=== PATIENT | male | born 1950 | race Caucasian/White ===

== ENCOUNTER 2017-11-06 15:08 | Inpatient (IN) | payer MEDICAID, MEDICARE ==
--- NOTE | 2017-11-06 15:46 | ED PDOC ---
Arrival/HPI - General Chief Complaint: Shortness Of Breath Time Seen by Provider: 11/06/17 15:38 Historian: Patient - History of Present Illness Narrative History of Present Illness (Text): 11/06/17 15:39 67 year old male, whose past medical history includes COPD, asthma, hypertension , and arthritis, who presents to the Emergency department complaining of chest pain and shortness of breath today. Patient notes associated cough and left lower abdominal pain. Patient notes chest pain as a sharp pain. Patient denies any fever, chills, nausea, vomiting, diarrhea, urinary symptoms, back pain, neck pain, headache, dizziness, or any other complaints. Time/Duration: Other (today) Symptom Onset: Sudden Symptom Course: Unchanged Activities at Onset: Light Context: Home Past Medical History - Provider Review Nursing Documentation Reviewed: Yes - Infectious Disease Hx of Infectious Diseases: None - Cardiac Hx Cardiac Disorders: Yes Hx Hypertension: Yes Other/Comment: CAD w/ stent x1 2016 - Pulmonary Hx Respiratory Disorders: Yes Hx Asthma: Yes Hx Chronic Obstructive Pulmonary Disease (COPD): Yes - Neurological Hx Neurological Disorder: No - HEENT Hx HEENT Disorder: Yes Hx Cataracts: Yes - Renal Hx Renal Disorder: Yes Hx Kidney Stones: Yes - Endocrine/Metabolic Hx Endocrine Disorders: Yes Hx Diabetes Mellitus Type 2: Yes - Hematological/Oncological Hx Blood Disorders: No Hx Blood Transfusions: No Hx Blood Transfusion Reaction: No - Integumentary Hx Dermatological Disorder: No - Musculoskeletal/Rheumatological Hx Musculoskeletal Disorders: Yes Hx Arthritis: Yes Hx Falls: No Hx Fractures: Yes (Right foot, nose x3, right leg "many years ago") Other/Comment: HX:chronic ankle problems-ARTHRITIS - Gastrointestinal Hx Gastrointestinal Disorders: No - Genitourinary/Gynecological Hx Genitourinary Disorders: Yes (frequency/retention) Hx Hematuria: Yes Hx Prostate Problems: Yes (S/P TURP; 3WF c [facility]) Other/Comment: had 2 surgical procedures 2 yrs ago for hematuria and passing clots pt does no know what kind of procedures they were - Psychiatric Hx Psychophysiologic Disorder: No Hx Substance Use: No - Surgical History Hx Coronary Stent: Yes (x 1) Other/Comment: TURP x1. HX: 07/09/16-CYSTO WITH BILATERAL RETROGRADE PYELOGRAM , RIGHT URETERAL STENT, CYSTOGRAM. HX: 08/22/16-CYSTO RIGHT URETERAL STENT REMOVAL - Anesthesia Hx Anesthesia: Yes Hx Anesthesia Reactions: Yes (BURNING UP ARM TO HEAD BEFORE SEDATED) Hx Malignant Hyperthermia: No Family/Social History - Physician Review Nursing Documentation Reviewed: Yes Family/Social History: Unknown Family HX Smoking Status: Current Some Days Smoker Hx Alcohol Use: Yes Hx Substance Use: No Allergies/Home Meds Allergies/Adverse Reactions: Allergies garlic Allergy (Severe, Verified 11/06/17 15:32) SWELLING OF FACE AND ITCHINESS onion Allergy (Severe, Verified 11/06/17 15:32) SWELLING OF FACE AND ITCHINESS pepper (genus Capsicum) [pepper] Allergy (Severe, Verified 11/06/17 15:32) SWELLING OF FACE AND ITCHINESS Home Medications: Home Meds Medication Instructions Recorded Confirmed Loratadine [Claritin] 10 mg PO DAILY 05/08/16 11/20/16 MetFORMIN [glucoPHAGE] 1,000 mg PO BID 05/08/16 11/20/16 Metoprolol Succinate 50 mg PO DAILY 05/08/16 11/20/16 Montelukast [Singulair] 10 mg PO DAILY 05/08/16 11/20/16 Simvastatin [Zocor] 40 mg PO DAILY 05/08/16 11/20/16 Tamsulosin [Flomax] 0.4 mg PO DAILY 05/08/16 11/20/16 Zolpidem [Ambien] 10 mg PO HS 05/08/16 11/20/16 Albuterol 0.083% [Albuterol 0.083% 3 ml NEB DAILY 11/20/16 11/20/16 Inhal Carissa (2.5 mg/3 ml) UD] Finasteride [Proscar] 5 mg PO DAILY 11/20/16 11/20/16 Hyoscyamine Sulfate [Levbid] 0.375 mg PO DAILY 11/20/16 11/20/16 Losartan [Cozaar] 12.5 mg PO DAILY 11/20/16 11/20/16 Oxybutynin [Oxybutynin Chloride] 5 mg PO DAILY 11/20/16 11/20/16 oxyCODONE/Acetaminophen [Percocet 1 tab PO Q6 PRN 11/20/16 11/20/16 5/325 mg Tab] Review of Systems - Physician Review All systems were reviewed & negative as marked: Yes - Review of Systems Constitutional: Normal Eyes: Normal ENT: Normal Respiratory: SOB, Cough Cardiovascular: Chest Pain Gastrointestinal: Normal. absent: Abdominal Pain, Diarrhea, Nausea, Vomiting Genitourinary Male: Normal. absent: Dysuria, Frequency, Hematuria Musculoskeletal: Normal. absent: Back Pain, Neck Pain Skin: Normal. absent: Rash Neurological: Normal. absent: Headache, Dizziness Endocrine: Normal Hemo/Lymphatic: Normal Psychiatric: Normal Physical Exam - Physical Exam Narrative Physical Exam (Text): 11/06/17 15:55 Gen: VS reviewed, alert, well developed, well nourished, nontoxic, mild distress (every patient is mild distress unless otherwise stated) ENT: normal pharynx Eye: EOMI, PERRL Neck: no JVD, supple, no adenopathy CV: regular rate, regular rhythm, no rubs,no murmur, no gallops, S1, S2, pulses equal and strong Pulm: no distress, clear to auscultation, no wheeze, no rhonchi, breath sounds equal, no rales Abd: soft, nontender, no guarding, no rebound, no rigidity, normal bowel sounds Ext: no edema Skin: good color, no rash, no cyanosis Psych: responds appropriately to questions, normal affect Neuro: oriented x3, CN2-12 intact grossly, motor intact, sensation intact Vital Signs Temp Pulse Resp BP Pulse Ox 11/06/17 15:37 99.1 F 100 H 20 120/86 96 11/06/17 15:36 20 94 L Respiratory Rate: Normal Medical Decision Making ED Course and Treatment: 11/06/17 15:55 Impression: 67 year old male presents to the Emergency department complaining of SOB and chest pain today. Plan: -- EKG -- Troponin -- Labs -- Chest X-ray -- Blood Culture -- UA -- Reassess and disposition Progress Notes: 11/06/17 16:55 CXR reviewed, shows: LUNGS: The lungs are well inflated. There is linear atelectasis/ scarring in the left lung base. PLEURA: No significant pleural effusion identified, no pneumothorax apparent. CARDIOVASCULAR: Normal. OSSEOUS STRUCTURES: No significant abnormalities. VISUALIZED UPPER ABDOMEN: Normal. OTHER FINDINGS: None. IMPRESSION: No active pulmonary disease. 11/06/17 17:[address] shea, patient to be admitted for copd exacerbation, empiric antibiotics for copd exacerbation - Lab Interpretations Lab Results: 11/06/17 15:08 11/06/17 15:08 Lab Results 11/06/17 15:08: PT 12.5, INR 1.09 H, APTT 28.3 11/06/17 15:08: Sodium 144, Potassium 3.4 L, Chloride 112 H, Carbon Dioxide 21, Anion Gap 15, BUN 18, Creatinine 1.1, Est GFR ( Amer) > 60, Est GFR (Non- Af Amer) > 60, Random Glucose 203 H, Calcium 9.2, Total Bilirubin 0.1 L, AST 17 , ALT 23, Alkaline Phosphatase 59, Troponin I < 0.01, NT-Pro-B Natriuret Pep 50.7, Total Protein 6.4, Albumin 3.6, Globulin 2.8, Albumin/Globulin Ratio 1.3 11/06/17 15:08: WBC 8.7 D, RBC 3.48 L, Hgb 11.3 L, Hct 33.5 L, MCV 96.3, MCH 32.5, MCHC 33.7, RDW 14.4, Plt Count 230, MPV 9.2, Gran % 59.4, Lymph % (Auto) 35.4 H, [place] % (Auto) 4.0, Eos % (Auto) 1.1 L, Baso % (Auto) 0.1, Gran # 5.18, Lymph # (Auto) 3.1, [place] # (Auto) 0.4, Eos # (Auto) 0.1, Baso # (Auto) 0.01 - RAD Interpretation Radiology Orders: 11/06/17 15:43 CHEST PORTABLE [RAD] Stat - EKG Interpretation EKG Interpretation (Text): 11/06/17 16:23 1534: sinus rhythm at 100 bpm, nml qrs, nml axis, no acute sttw abn - Medication Orders Current Medication Orders: Ceftriaxone Sodium (Rocephin 1 Gram Ivpb) 1 gm in 100 mls @ 100 mls/hr IVPB STAT STA PRN Reason: Protocol Stop: 11/06/17 18:19 Azithromycin (Zithromax 500mg In Ns) 500 mg in 250 mls @ 167 mls/hr IVPB STAT STA PRN Reason: Protocol Stop: 11/06/17 18:50 Discontinued Medications Albuterol Sulfate (Albuterol 0.083% Inhal Carissa (2.5 Mg/3 Ml) Ud) 2.5 mg INH STAT STA Stop: 11/06/17 17:26 Albuterol/Ipratropium (Duoneb 3 Mg/0.5 Mg (3 Ml) Ud) 3 ml IH STAT STA Stop: 11/06/17 16:10 Last Admin: 11/06/17 16:29 Dose: 3 ml Methylprednisolone (Solu-Medrol) 60 mg IVP STAT STA Stop: 11/06/17 16:09 Last Admin: 11/06/17 16:30 Dose: 60 mg IVP Administration Document 11/06/17 16:30 [email or web address] (Rec: 11/06/17 16:30 [email or web address] [id number]) Charges for Administration # of IVP Administrations 1 - Scribe Statement The provider has reviewed the documentation as recorded by the Scribe Jodi Tran All medical record entries made by the Scribe were at my direction and personally dictated by me. I have reviewed the chart and agree that the record accurately reflects my personal performance of the history, physical exam, medical decision making, and the department course for this patient. I have also personally directed, reviewed, and agree with the discharge instructions and disposition. Disposition/Present on Arrival - Present on Arrival Any Indicators Present on Arrival: No History of DVT/PE: No History of Uncontrolled Diabetes: No Urinary Catheter: Yes History of Decub. Ulcer: No History Surgical Site Infection Following: None - Disposition Have Diagnosis and Disposition been Completed?: Yes Diagnosis: COPD exacerbation Disposition: HOSPITALIZED Disposition Time: 18:15 Condition: GOOD
[2017-11-06 15:48] VITALS: BMI 26.6
--- NOTE | 2017-11-06 15:48 | ED PDOC ---
Arrival/HPI - General Chief Complaint: Shortness Of Breath Time Seen by Provider: 11/06/17 15:38 Historian: Patient - History of Present Illness Narrative History of Present Illness (Text): 11/06/17 15:39 67 year old male, whose past medical history includes COPD, asthma, hypertension , and arthritis, who presents to the Emergency department complaining of chest pain and shortness of breath today. Patient notes associated cough and left lower abdominal pain. Patient notes chest pain as a sharp pain. Patient denies any fever, chills, nausea, vomiting, diarrhea, urinary symptoms, back pain, neck pain, headache, dizziness, or any other complaints. Time/Duration: Other (today) Symptom Onset: Sudden Symptom Course: Unchanged Activities at Onset: Light Context: Home Past Medical History - Provider Review Nursing Documentation Reviewed: Yes - Infectious Disease Hx of Infectious Diseases: None - Cardiac Hx Cardiac Disorders: Yes Hx Hypertension: Yes Other/Comment: CAD w/ stent x1 2016 - Pulmonary Hx Respiratory Disorders: Yes Hx Asthma: Yes Hx Chronic Obstructive Pulmonary Disease (COPD): Yes - Neurological Hx Neurological Disorder: No - HEENT Hx HEENT Disorder: Yes Hx Cataracts: Yes - Renal Hx Renal Disorder: Yes Hx Kidney Stones: Yes - Endocrine/Metabolic Hx Endocrine Disorders: Yes Hx Diabetes Mellitus Type 2: Yes - Hematological/Oncological Hx Blood Disorders: No Hx Blood Transfusions: No Hx Blood Transfusion Reaction: No - Integumentary Hx Dermatological Disorder: No - Musculoskeletal/Rheumatological Hx Musculoskeletal Disorders: Yes Hx Arthritis: Yes Hx Falls: No Hx Fractures: Yes (Right foot, nose x3, right leg "many years ago") Other/Comment: HX:chronic ankle problems-ARTHRITIS - Gastrointestinal Hx Gastrointestinal Disorders: No - Genitourinary/Gynecological Hx Genitourinary Disorders: Yes (frequency/retention) Hx Hematuria: Yes Hx Prostate Problems: Yes (S/P TURP; 3WF c [facility]) Other/Comment: had 2 surgical procedures 2 yrs ago for hematuria and passing clots pt does no know what kind of procedures they were - Psychiatric Hx Psychophysiologic Disorder: No Hx Substance Use: No - Surgical History Hx Coronary Stent: Yes (x 1) Other/Comment: TURP x1. HX: 07/09/16-CYSTO WITH BILATERAL RETROGRADE PYELOGRAM , RIGHT URETERAL STENT, CYSTOGRAM. HX: 08/22/16-CYSTO RIGHT URETERAL STENT REMOVAL - Anesthesia Hx Anesthesia: Yes Hx Anesthesia Reactions: Yes (BURNING UP ARM TO HEAD BEFORE SEDATED) Hx Malignant Hyperthermia: No Family/Social History - Physician Review Nursing Documentation Reviewed: Yes Family/Social History: Unknown Family HX Smoking Status: Current Some Days Smoker Hx Alcohol Use: Yes Hx Substance Use: No Allergies/Home Meds Allergies/Adverse Reactions: Allergies garlic Allergy (Severe, Verified 11/06/17 15:32) SWELLING OF FACE AND ITCHINESS onion Allergy (Severe, Verified 11/06/17 15:32) SWELLING OF FACE AND ITCHINESS pepper (genus Capsicum) [pepper] Allergy (Severe, Verified 11/06/17 15:32) SWELLING OF FACE AND ITCHINESS Home Medications: Home Meds Medication Instructions Recorded Confirmed Loratadine [Claritin] 10 mg PO DAILY 05/08/16 11/20/16 MetFORMIN [glucoPHAGE] 1,000 mg PO BID 05/08/16 11/20/16 Metoprolol Succinate 50 mg PO DAILY 05/08/16 11/20/16 Montelukast [Singulair] 10 mg PO DAILY 05/08/16 11/20/16 Simvastatin [Zocor] 40 mg PO DAILY 05/08/16 11/20/16 Tamsulosin [Flomax] 0.4 mg PO DAILY 05/08/16 11/20/16 Zolpidem [Ambien] 10 mg PO HS 05/08/16 11/20/16 Albuterol 0.083% [Albuterol 0.083% 3 ml NEB DAILY 11/20/16 11/20/16 Inhal Carissa (2.5 mg/3 ml) UD] Finasteride [Proscar] 5 mg PO DAILY 11/20/16 11/20/16 Hyoscyamine Sulfate [Levbid] 0.375 mg PO DAILY 11/20/16 11/20/16 Losartan [Cozaar] 12.5 mg PO DAILY 11/20/16 11/20/16 Oxybutynin [Oxybutynin Chloride] 5 mg PO DAILY 11/20/16 11/20/16 oxyCODONE/Acetaminophen [Percocet 1 tab PO Q6 PRN 11/20/16 11/20/16 5/325 mg Tab] Review of Systems - Physician Review All systems were reviewed & negative as marked: Yes - Review of Systems Constitutional: Normal Eyes: Normal ENT: Normal Respiratory: SOB. absent: Cough Cardiovascular: Chest Pain Gastrointestinal: Normal. absent: Abdominal Pain, Diarrhea, Nausea, Vomiting Genitourinary Male: Normal. absent: Dysuria, Frequency, Hematuria Musculoskeletal: Normal. absent: Back Pain, Neck Pain Skin: Normal. absent: Rash Neurological: Normal. absent: Headache, Dizziness Endocrine: Normal Hemo/Lymphatic: Normal Psychiatric: Normal Physical Exam - Physical Exam Narrative Physical Exam (Text): Gen: VS reviewed, alert, well developed, well nourished, nontoxic, mild distress (every patient is mild distress unless otherwise stated) ENT: normal pharynx Eye: EOMI, PERRL Neck: no JVD, supple, no adenopathy CV: regular rate, regular rhythm, no rubs,no murmur, no gallops, S1, S2, pulses equal and strong Pulm: no distress, clear to auscultation, no wheeze, no rhonchi, breath sounds equal, no rales Abd: soft, nontender, no guarding, no rebound, no rigidity, normal bowel sounds Ext: no edema Skin: good color, no rash, no cyanosis Psych: responds appropriately to questions, normal affect Neuro: oriented x3, CN2-12 intact grossly, motor intact, sensation intact Vital Signs Reviewed: Yes Vital Signs Resp Pulse Ox 11/06/17 15:36 20 94 L Temperature: Afebrile Blood Pressure: Normal Pulse: Regular Respiratory Rate: Normal Appearance: Positive for: Well-Appearing, Non-Toxic, Comfortable Pain Distress: None Mental Status: Positive for: Alert and Oriented X 3 Medical Decision Making ED Course and Treatment: 11/06/17 15:52 Impression: 67 year old male presents to the Emergency department complaining of chest pain and shortness of breath. Plan: -- EKG -- Troponin -- Labs -- Chest X-ray -- Blood Culture -- Reassess and disposition Progress Notes: - Scribe Statement The provider has reviewed the documentation as recorded by the Bobbyibangeline Tran All medical record entries made by the Scribe were at my direction and personally dictated by me. I have reviewed the chart and agree that the record accurately reflects my personal performance of the history, physical exam, medical decision making, and the department course for this patient. I have also personally directed, reviewed, and agree with the discharge instructions and disposition. Disposition/Present on Arrival - Present on Arrival History of DVT/PE: No History of Uncontrolled Diabetes: No Urinary Catheter: Yes History of Decub. Ulcer: No History Surgical Site Infection Following: None - Disposition
--- NOTE | 2017-11-06 15:57 | RAD ---
HISTORY: Chest pain COMPARISON: 05/08/2016. FINDINGS: LUNGS: The lungs are well inflated. There is linear atelectasis/ scarring in the left lung base. PLEURA: No significant pleural effusion identified, no pneumothorax apparent. CARDIOVASCULAR: Normal. OSSEOUS STRUCTURES: No significant abnormalities. VISUALIZED UPPER ABDOMEN: Normal. OTHER FINDINGS: None. IMPRESSION: No active pulmonary disease.
[2017-11-06] MEDS ORDERED: Albuterol-Ipratrop 3 mg / 0.5 (3 ml) UD IH STA (16:09)
[2017-11-06 16:24] LABS: BASO # 0.01 K/mm3 (0.0-2.0); BASO % 0.1 % (0.0-3.0); EOS # 0.1 (0.0-0.7); EOS % 1.1 % (1.5-5.0); GRAN # 5.18 (1.4-6.5); GRAN % 59.4 % (50.0-68.0); HEMOGLOBIN 11.3 g/dL (14.0-18.0); LYMPH # 3.1 (1.2-3.4); LYMPH % 35.4 % (22.0-35.0); MEAN CELL VOLUME 96.3 fl (80.0-105.0); MEAN CORPUSCULAR HEMOGLOBIN 32.5 pg (25.0-35.0); MEAN CORPUSCULAR HGB CONC 33.7 g/dl (31.0-37.0); MEAN PLATELET VOLUME 9.2 fl (7.0-11.0); MONO # 0.4 (0.1-0.6); RBC 3.48 10^6/uL (3.5-6.1); RED CELL DISTRIBUTION WIDTH 14.4 % (11.5-14.5); WHITE BLOOD COUNT 8.7 10^3/ul (4.5-11.0)
[2017-11-06 16:30] LABS: ALB/GLOB RATIO 1.3 (1.1-1.8); ALBUMIN 3.6 g/dL (3.0-4.8); ALT/SGPT 23 U/L (7-56); AST/SGOT 17 U/L (17-59); BLOOD UREA NITROGEN 18 mg/dL (7-21); CALCIUM 9.2 mg/dL (8.4-10.5); GFR AFRICAN-AMERICAN > 60; GFR NON-AFRICAN AMERICAN > 60
[2017-11-06 16:35] LABS: INR 1.09 (0.93-1.08); PARTIAL THROMBOPLASTIN TIME 28.3 Seconds (25.1-36.5); PROTHROMBIN TIME 12.5 SECONDS (9.4-12.5)
[2017-11-06 16:43] LABS: B-TYPE NATRIURETIC PEPTIDE 50.7 pg/mL (0-450); TROPONIN I < 0.01 ng/mL
[2017-11-06] MEDS ORDERED: cefTRIAXone 1 gm 1 GM/100 ML BAG IVPB STA (17:20)
[2017-11-06] MEDS ORDERED: Azithromycin 500MG/NS 250ml 500 MG/250 ML BAG IVPB STA (17:21)
[2017-11-06] MEDS ORDERED: Albuterol 0.083% Inhal Sol (2.5 mg/3 mL) UD INH STA (17:25)
[2017-11-06 18:28] LABS: URINE BILIRUBIN NEGATIVE (NEGATIVE); URINE BLOOD TRACE-LYSED (NEGATIVE); URINE GLUCOSE (UA) >=1000 mg/dL (NEGATIVE); URINE LEUKOCYTE ESTERASE NEGATIVE Leu/uL (NEGATIVE); URINE PROTEIN 30 mg/dL (<30 mg/dL); URINE UROBILINOGEN 0.2 E.U./dL (<1 E.U./dL)
[2017-11-06 18:30] LABS: URINE APPEARANCE TURBID (CLEAR); URINE COLOR YELLOW (YELLOW)
[2017-11-06 18:33] LABS: URINE RBC NEGATIVE /hpf (0-2); URINE WBC 0 - 2 /hpf (0-6)
[2017-11-06] MEDS ORDERED: MethylPREDNISolone 40 mg Vial IVP PRN (20:57)
[2017-11-06] MEDS ORDERED: guaiFENesin DM 100 mg-10 mg/5 ml UD PO PRN (20:57)
[2017-11-06] MEDS: Insulin Lispro (humaLOG) LOW Coverage SC SCH (22:28)
[2017-11-06] MEDS: Insulin Detemir 100 units/ml Vial (Levemir) SC SCH (22:30)
[2017-11-06] MEDS: Potassium Chloride 20 mEq ER Tab PO SCH (22:32)
[2017-11-06] MEDS: MethylPREDNISolone 40 mg Vial IVP SCH (23:22)
[2017-11-06] MEDS ORDERED: Oxycodone/Acetaminophen 5/325 mg Tab PO ONE (23:51)
[2017-11-07] MEDS: MethylPREDNISolone 40 mg Vial IVP SCH ×4 (05:40→23:13)
[2017-11-07] MEDS: Arformoterol 15 mcg/2 ml Inh Sol IH SCH ×2 (07:37→19:52)
[2017-11-07] MEDS: Budesonide 0.25 mg/2 ml Inhal Susp UD IH SCH ×2 (07:38→19:52)
[2017-11-07] MEDS: Levalbuterol 0.63 MG/3 ML Inhal Soln UD IH SCH ×3 (07:39→19:54)
--- NOTE | 2017-11-07 09:02 | CARD ---
APPROVED REPORT EKG Measurement Heart [id number] <Conclusion> Normal sinus rhythm (100) Minimal voltage criteria for LVH, may be normal variant Nonspecific T wave abnormality, new
[2017-11-07] MEDS: Insulin Lispro (humaLOG) LOW Coverage SC SCH ×4 (09:12→21:40)
[2017-11-07] MEDS: Azithromycin 500MG/NS 250ml 500 MG/250 ML BAG IVPB SCH (09:13)
[2017-11-07] MEDS: Potassium Chloride 20 mEq ER Tab PO SCH (09:13)
[2017-11-07] MEDS: cefTRIAXone 1 gm 1 GM/100 ML BAG IVPB SCH (09:19)
[2017-11-07] MEDS: oxyCODONE 10 mg Immediate Release Tab PO PRN ×2 (12:20→21:36)
[2017-11-07 13:18] LABS: IRON 41 ug/dL (45-180)
[2017-11-07 13:35] LABS: % IRON SATURATION 12 % (20-55); TOTAL IRON BINDING CAPACITY 330 ug/dL (261-462)
--- NOTE | 2017-11-07 16:47 | PCM.URO ---
Urology Progress Note - Objective Lab Studies: Reviewed (consult request is apparently for cystoscopy we can discuss plans further thanks) Lab Results Last 24 Hours: Laboratory Results - last 24 hr 11/06/17 11/06/17 11/07/17 18:15 21:40 07:50 POC Glucose (mg/dL) 336 H 245 H Iron TIBC % Saturation Triglycerides Cholesterol LDL Cholesterol Direct HDL Cholesterol Urine Color Yellow Urine Appearance Turbid Urine pH 6.0 Ur Specific [place] 1.025 Urine Protein 30 H Urine Glucose (UA) >=1000 Urine Ketones Negative Urine Blood Trace-lysed H Urine Nitrate Negative Urine Bilirubin Negative Urine Urobilinogen 0.2 Ur Leukocyte Esterase Negative Urine RBC Negative Urine WBC 0 - 2 11/07/17 11/07/17 11/07/17 10:20 10:53 12:50 POC Glucose (mg/dL) 278 H Iron 41 L TIBC 330 % Saturation 12 L Triglycerides 46 Cholesterol 191 LDL Cholesterol Direct 124 HDL Cholesterol 55 Urine Color Urine Appearance Urine pH Ur Specific [place] Urine Protein Urine Glucose (UA) Urine Ketones Urine Blood Urine Nitrate Urine Bilirubin Urine Urobilinogen Ur Leukocyte Esterase Urine RBC Urine WBC 11/07/17 16:08 POC Glucose (mg/dL) 207 H Iron TIBC % Saturation Triglycerides Cholesterol LDL Cholesterol Direct HDL Cholesterol Urine Color Urine Appearance Urine pH Ur Specific [place] Urine Protein Urine Glucose (UA) Urine Ketones Urine Blood Urine Nitrate Urine Bilirubin Urine Urobilinogen Ur Leukocyte Esterase Urine RBC Urine WBC Intake & Output: Intake & Output 11/06/17 11/07/17 11/07/17 18:59 06:59 18:59 Intake Total 0 Output Total 100 Balance -100 Intake: Oral 0 Output: Urine 100 Urine, Voided 100 Other: Voiding Method Toilet # Voids Urine, Voided 2 # Bowel Movements 0 Vital Signs: Vital Signs - 24 hr 11/06/17 11/06/17 11/06/17 18:25 19:48 20:14 Temperature 98.2 F Pulse Rate 103 H 107 H 107 H Pulse Rate [ Apical] Respiratory 17 18 18 Rate Blood Pressure 103/66 119/56 L 119/56 L O2 Sat by Pulse 93 L 94 L 94 L Oximetry 11/06/17 11/06/17 11/07/17 20:24 22:00 02:00 Temperature 98.0 F Pulse Rate 105 H 98 H 106 H Pulse Rate [ 105 H Apical] Respiratory 18 Rate Blood Pressure 110/77 O2 Sat by Pulse Oximetry 11/07/17 11/07/17 05:08 08:36 Temperature 97.4 F L Pulse Rate 93 H 93 H Pulse Rate [ Apical] Respiratory 20 Rate Blood Pressure 116/84 O2 Sat by Pulse 96 Oximetry
[2017-11-07 17:28] LABS: FERRITIN 21.2 ng/mL
[2017-11-07 17:59] LABS: FOLATE 9.5 ng/mL
[2017-11-07] MEDS: Insulin Detemir 100 units/ml Vial (Levemir) SC SCH (21:35)
--- NOTE | 2017-11-08 05:35 | CON ---
DATE: 11/07/2017 UROLOGY CONSULTATION REASON FOR CONSULTATION: Voiding dysfunction. HISTORY OF PRESENT ILLNESS: This is a very pleasant gentleman, who is admitted to the hospital now under the care of Dr. Constance Lozano. He has been admitted with COPD and significant voiding dysfunction. From Urology standpoint, he is very pleasant, but extremely noncompliant gentleman. We have previously discussed diagnostic studies with him and further workup. matter. He has significant voiding dysfunction. From a Urology standpoint, he has a decreased force of stream, he also has abdominal distension and Urology is requested. The consult actually came in as a phone call from nursing secretary requesting a cystoscopy. I need to check my previous records regarding this patient to see what testing we have done previously with the patient and then we will make some further recommendations and plans. PAST MEDICAL AND SURGICAL HISTORY: Listed on the chart. As mentioned above, he has underlying COPD and he has been in hospital for that reason. No history of an DC. He has multiple medical issues. REVIEW OF SYSTEMS: As listed above, noncontributory. PHYSICAL EXAMINATION: GENERAL: Well-nourished male, in no apparent distress. ABDOMEN: The abdomen is difficult to evaluate, but it feels a little bit distended. There is no evidence of acute abdomen. No obvious rebound, guarding, etc. GENITOURINARY AND RECTAL: Deferred. The remainder of the physical exam is unremarkable. See the plans listed below. DIAGNOSES: Voiding dysfunction, decreased force of stream. ASSESSMENT AND PLAN: I need to check my old records. I believe he has urethral stricture. There may have even being concerned about malignancy, may be elevation of PSA and recurrent episodes of gross hematuria, after I check all my records. He is a very pleasant , but I do remember recommending followup and the patient not coming in back for regular appointments. He is now here in the hospital. He has apparently requested a consultation with me and the consult as mentioned, came in for cystoscopic evaluation. So, the plan will be as follows. It is currently 11/07/2017, so on the weekend we are not going to do any further intervention. If the patient is still here with chronic obstructive pulmonary disease and he is medically cleared, we would consider a cystoscopic evaluation, may be on 11/10/2017 or 11/11/2017, or 11/12/2017. If not, we will just follow the patient. He could be followed as an outpatient. First and foremost, we will need to check some of my records and then make further recommendations and plans. The plan is as follows: 1. Check some old records. 2. Check PSA. 3. Send off some laboratory studies as appropriate. 4. In terms of performing the cystoscopic evaluation, we will have to discuss the timing; given his noncompliance, but as long as he is here, he is looking to be evaluated and perhaps we will be able to do such. Thank you for the Urology consultation. Domo Richards MD
[2017-11-08] MEDS: MethylPREDNISolone 40 mg Vial IVP SCH ×4 (05:57→23:13)
[2017-11-08] MEDS: Budesonide 0.25 mg/2 ml Inhal Susp UD IH SCH ×2 (07:40→19:59)
[2017-11-08] MEDS: Arformoterol 15 mcg/2 ml Inh Sol IH SCH ×2 (07:40→19:58)
[2017-11-08] MEDS: Levalbuterol 0.63 MG/3 ML Inhal Soln UD IH SCH ×3 (07:40→20:00)
[2017-11-08] MEDS: Insulin Lispro (humaLOG) LOW Coverage SC SCH ×2 (07:59→13:03)
[2017-11-08 08:50] LABS: MEAN CELL VOLUME 98.8 fl (80.0-105.0); MEAN CORPUSCULAR HEMOGLOBIN 32.4 pg (25.0-35.0); MEAN CORPUSCULAR HGB CONC 32.7 g/dl (31.0-37.0); MEAN PLATELET VOLUME 9.9 fl (7.0-11.0); RBC 3.4 10^6/uL (3.5-6.1); RED CELL DISTRIBUTION WIDTH 14.6 % (11.5-14.5); WHITE BLOOD COUNT 16.3 10^3/ul (4.5-11.0)
[2017-11-08 09:17] LABS: ALB/GLOB RATIO 1.3 (1.1-1.8); ALBUMIN 3.7 g/dL (3.0-4.8); ALT/SGPT 25 U/L (7-56); AST/SGOT 13 U/L (17-59); BLOOD UREA NITROGEN 28 mg/dL (7-21); CALCIUM 9.7 mg/dL (8.4-10.5); GFR AFRICAN-AMERICAN > 60; GFR NON-AFRICAN AMERICAN > 60
[2017-11-08] MEDS: Azithromycin 500MG/NS 250ml 500 MG/250 ML BAG IVPB SCH (09:50)
[2017-11-08] MEDS: Potassium Chloride 20 mEq ER Tab PO SCH (09:50)
[2017-11-08] MEDS: oxyCODONE 10 mg Immediate Release Tab PO PRN ×2 (09:50→22:27)
[2017-11-08] MEDS: cefTRIAXone 1 gm 1 GM/100 ML BAG IVPB SCH (09:51)
[2017-11-08] MEDS: Insulin Lispro (humaLOG) MEDIUM Coverage SC SCH ×2 (18:07→22:04)
--- NOTE | 2017-11-08 18:30 | PN ---
DATE: 11/08/2017 SUBJECTIVE: This 67-year-old male remains hospitalized. He was seen in consultation by Dr. Domo Richards from Urology. His plans are to ready the patient for a cystoscopy when medically stable regarding issues of urinary retention, benign prostate hypertrophy and recurrent hematuria. At present, the patient is tolerating diet, medication, insulins, antibiotics and pulmonary toiletry and IV Solu-Medrol. He denies any fever, chills, chest pain or shortness of breath and is cooperating with the nursing staff. He remains in a normal sinus rhythm on the residential monitor. PHYSICAL EXAMINATION: VITAL SIGNS: Today's examination shows temperature 98.1, respirations 20, pulse 95 and blood pressure 112/82. Pulse ox 95% on room air. HEENT: Head normocephalic, atraumatic. Eyes: No icterus. Ears: Clear. Throat: Noninjected. NECK: Supple. HEART: Regular S1, S2. LUNGS: Have rhonchi and occasional expiratory wheezing that clears with coughing. ABDOMEN: Soft. EXTREMITIES: No edema. SKIN: Without rash. NEUROLOGICAL: Intact. PSYCHOLOGICAL: Chronic anxiety. VASCULAR: Legs warm to touch. LABORATORY DATA: White count 16,300, hemoglobin 11, hematocrit 33.6, platelets 237,000. Ferritin level 21.2, low; iron 41, low; TIBC 330; percent saturation 12, low. Blood sugar 294, high. Sodium 146, K 4.2, chloride 112, bicarb 21, BUN 28, creatinine 1.1, bilirubin 0.3, AST 13, ALT 25, alk phos 71. B12 of 233, low. Folic acid 9.5. Total cholesterol 191; triglycerides 46; LDL 124, high; HDL 55. Blood cultures show no growth at 48 hours. IMPRESSION: A 67-year-old male admitted with exacerbation of chronic obstructive pulmonary disease, now with blood work evidence of iron-deficiency anemia, history of chronic hypertension, urinary retention, benign prostate hypertrophy and history of microhematuria, history of stable atherosclerotic heart disease, anxiety neurosis. PLAN: Plan as discussed with the patient will be to start Lipitor for hyperlipidemia 20 mg p.o. at dinnertime while continuing Brovana, Cepacol, Cozaar, Flomax, Glucotrol Humalog R low insulin protocol before meals and at bedtime, Imdur, K-Dur, Levemir, hydrochlorothiazide, p.r.n. oxycodone, Pulmicort, Robitussin, Rocephin, IV Solu-Medrol, Tylenol, Xopenex, Zithromax and Zofran. The patient is being followed by Dr. Domo Richards from Urology. I will place a consultation with Dr. Wilbert Atwood from GI regarding scheduling of endoscopy and colonoscopies. The patient is B12 deficient and this will be replaced with B12 sublingual treatment as well. The patient will be ordered to have serial labs. He continues to receive pulmonary toiletry. He is encouraged to do incentive spirometry. He continues on heart-healthy diabetic diet and based on his clinical progress, additional testing and workup will be entertained. Greater than 35 minutes was spent in the care management, review of labs, orders, x-rays, outlining of treatment plan and medication for this patient today and discussion of him with nursing and co-consultants. All questions were answered. Constance Lozano MD SOFIA
[2017-11-08] MEDS: Insulin Detemir 100 units/ml Vial (Levemir) SC SCH (22:27)
--- NOTE | 2017-11-09 03:07 | HP ---
DATE OF EXAM: 11/07/2017 HISTORY OF PRESENT ILLNESS: This 67-year-old male was admitted for exacerbation of chronic obstructive pulmonary disease. He had presented to [facility] ER complaining of chest pain and shortness of breath. The cough was associated with sputum and patient is admitted for further evaluation of the above. On speaking with the patient, he discussed a significant urological issue with history of benign prostate hypertrophy, voiding difficulty, and history of urinary retention. He states he has followed for many years with Dr. Domo Richards and a consultation with him has been requested at present. The patient also has a history of insulin-dependent diabetes mellitus, chronic hypertension, stable atherosclerotic heart disease, degenerative arthritis, and anxiety neurosis. 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 He describes what is suggestive of post traumatic stress syndrome and states he is currently retired. ALLERGIES: THE PATIENT ADMITS TO ALLERGIES TO GARLIC, ONIONS, AND PEPPERS. MEDICATIONS: No prescription medication and as an outpatient states he was taking Levemir, glipizide, Imdur, losartan and hydrochlorothiazide, Januvia, Jardiance, and Drisdol. REVIEW OF SYSTEMS: CONSTITUTIONAL: He denied fever or chills. HEAD: Denied headache or seizure. EYE: Denied change in visual acuity. EAR: No hearing loss. THROAT: No swallowing difficulty. NECK: No stiffness. CARDIAC: Denies any active chest pain or anginal symptomatology, COPD, cough with sputum production and wheezing present. GI: No hematemesis. No melena. : As per HPI. VASCULAR: No claudication. PSYCHOLOGICAL: Chronic anxiety. NEUROLOGICAL: No knowledge of stroke. SKIN: No rash. FAMILY HISTORY: Noncontributory. SOCIAL HISTORY: He is a nondrinker, nonsmoker, non-IV-drug misuser. 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 PHYSICAL EXAMINATION: VITAL SIGNS: He was noted to be in a normal sinus rhythm, temperature was 98.1, respirations 20, pulse 95, blood pressure 112/82. Pulse ox 95% on room air. HEENT: Head: Normocephalic, atraumatic. Eyes: No icterus. Ears: Clear. Throat: Noninjected. NECK: Supple. HEART: Regular S1, S2. No pathological rubs, murmurs, or gallops. LUNGS: Have rhonchi and expiratory wheezing that cleared with coughing. ABDOMEN: Soft. EXTREMITIES: No edema. SKIN: Without rash. NEUROLOGICAL: Grossly intact. PSYCHOLOGICAL: Alert and oriented x3. NEUROLOGICAL: Without focal defect. SKIN: No ulcers. LABORATORY DATA: Admission white count 8.7, hemoglobin 11.3, hematocrit 33.5, platelets 230,000. PT/INR 1.09, PTT 28.3. Sodium 144, K 3.4, chloride 112, bicarb 21, BUN 18, creatinine 1.1, random blood sugar 336. Bilirubin 0.1, AST 17, ALT 23, alk phos 59. Troponin less than 0.01. BNP 50.7. Cholesterol 191, LDL 124, triglycerides 46, HDL 55. Urinalysis showed 30 mg/dL of protein, no rbc's, 0 to 2 wbc's. Chest x-ray was reviewed. It was consistent with chronic obstructive pulmonary disease with linear atelectasis and scarring at his left lung base. No pleural effusions were noted. No pneumothorax was noted. EKG was reviewed. It showed a normal sinus rhythm with nonspecific ST-T wave changes and possible left ventricular hypertrophy voltage changes. IMPRESSION: This is a 67-year-old male with stable atherosclerotic heart disease, now with exacerbation of chronic obstructive pulmonary disease, chronic hypertension, benign prostate hypertrophy, history of urinary retention, uncontrolled diabetes mellitus, hypokalemia, degenerative arthritis, anxiety neurosis. PLAN: The plan, as discussed with patient, nursing, case management, and nurse practitioner, will be to continue Brovana inhalational therapy every 12, Cepacol lozenges every 2 hours p.r.n. severe sore throat, Cozaar 100 mg p.o. daily, Flomax 0.4 mg p.o. daily, Glucotrol 10 mg p.o. daily, Humalog regular low insulin coverage protocol before meals and at nighttime, Imdur 30 mg p.o. daily, K-Dur 40 mEq p.o. daily, Levemir 20 units subcu at bedtime, Microzide 12.5 mg p.o. daily. Patient takes chronic oxycodone 10 mg p.o. every 8 hours p.r.n. pain and was informed he will need pain management upon discharge for further management of his narcotic issues. Pulmicort inhalational therapy every 12, Robitussin DM 5 mL p.o. every 4 hours p.r.n. cough, Rocephin 1 g IV every 24, Solu-Medrol 30 mg IV every 6, Tylenol 650 mg p.o. every 6 hours p.r.n. pain or temperature greater than 101, Xopenex inhalational therapy 0.63 mg t.i.d., Zithromax 500 mg IV every 24, and Zofran 4 mg IV every 4 hours p.r.n. nausea and vomiting. The patient has blood and urine cultures pending. He is ordered to have a consultation with Dr. Domo Richards from Urology. He is encouraged to do incentive spirometry every 1 hour and is ordered to have a heart-healthy diabetic diet. Based on his clinical progress, additional testing and workup will be entertained. He is ordered to have a stool for occult blood, anemia's diagnostic testings including iron, TIBC, vitamin B12, and folic acid and repeat chemistry and CBC panels in the a.m. Greater than 75 minutes was spent in the care management, outlining of orders, medications, insulins, consultations, review of x-rays and labs, and discussion of this patient's case with himself and nursing. All questions were answered. Constance Lozano MD MTDAnamika
[2017-11-09] MEDS: MethylPREDNISolone 40 mg Vial IVP SCH ×4 (06:12→23:07)
[2017-11-09] MEDS: oxyCODONE 10 mg Immediate Release Tab PO PRN ×2 (07:00→20:35)
[2017-11-09] MEDS: Arformoterol 15 mcg/2 ml Inh Sol IH SCH ×2 (08:05→20:09)
[2017-11-09] MEDS: Levalbuterol 0.63 MG/3 ML Inhal Soln UD IH SCH ×3 (08:06→20:09)
[2017-11-09] MEDS: Budesonide 0.25 mg/2 ml Inhal Susp UD IH SCH ×2 (08:06→20:09)
[2017-11-09] MEDS: Insulin Lispro (humaLOG) MEDIUM Coverage SC SCH ×4 (08:30→21:18)
[2017-11-09] MEDS: Potassium Chloride 20 mEq ER Tab PO SCH (10:18)
[2017-11-09] MEDS: Azithromycin 500MG/NS 250ml 500 MG/250 ML BAG IVPB SCH (10:19)
[2017-11-09] MEDS: cefTRIAXone 1 gm 1 GM/100 ML BAG IVPB SCH (10:20)
--- NOTE | 2017-11-09 13:51 | PCM.URO ---
Urology Progress Note - Objective Lab Studies: Reviewed (see previously dictated note timing for cystoscopy to be discussed) Lab Results Last 24 Hours: Laboratory Results - last 24 hr 11/08/17 11/08/17 11/09/17 16:06 21:14 07:35 POC Glucose (mg/dL) 227 H 272 H 254 H 11/09/17 11:45 POC Glucose (mg/dL) 167 H Intake & Output: Intake & Output 11/08/17 11/09/17 11/09/17 18:59 06:59 18:59 Intake Total 850 360 Output Total 0 Balance 850 360 Intake: Oral 850 360 Output: Stool 0 Other: # Voids Urine, Voided 1 1 # Bowel Movements 1 Vital Signs: Vital Signs - 24 hr 11/08/17 11/08/17 11/08/17 14:00 16:36 18:00 Temperature 97.7 F Pulse Rate 77 92 H 99 H Respiratory 20 Rate Blood Pressure 101/70 O2 Sat by Pulse 95 Oximetry 11/08/17 11/09/17 11/09/17 22:00 02:00 05:30 Temperature Pulse Rate 93 H 79 67 Respiratory Rate Blood Pressure O2 Sat by Pulse Oximetry 11/09/17 06:00 Temperature 97.1 F L Pulse Rate 66 Respiratory 20 Rate Blood Pressure 137/96 H O2 Sat by Pulse 95 Oximetry
[2017-11-09] MEDS ORDERED: Acetylcysteine 20% Inhal Soln (4ml) IH PRN (14:10)
[2017-11-09] MEDS: Acetylcysteine 20% Inhal Soln (4ml) IH PRN (14:28)
--- NOTE | 2017-11-09 14:50 | CP.PCM.CON ---
<Terri Metz - Last Filed: 11/09/17 14:41> History of Present Illness - History of Present Illness History of Present Illness: PGY5 Initial GI Consult Don King is a 67M w/ hx of COPD, asthma, hypertension, and arthritis, who presents to the Emergency department complaining of chest pain and shortness of breath. Pt states that he has been feeling increasingly SOB for the past few days. He notes associated cough and left lower abdominal pain. The abd pain is intermittent and non-radiating. Patient notes chest pain as a sharp pain associatd with his cough. Patient denies any fever, chills, nausea, vomiting, diarrhea, urinary symptoms, back pain, neck pain, headache, dizziness , or any other complaint. He denies any melena, hematemsis or coffee-ground emesis. Denies any rectal bleeding. Denies any weightloss or family hx of Gi malignancy PMHx: HTN, asthma, OA, COPD PShx: Denies Social hx: Social etoh, past smoker, denies any illicit drugs Family hx: reviewed, denies any Gi malignancy Endo hx: none Past Patient History - Infectious Disease Hx of Infectious Diseases: None - Past Medical History & Family History Past Medical History?: Yes - Past Social History Smoking Status: Current Some Days Smoker - CARDIAC Hx Cardiac Disorders: Yes Hx Hypertension: Yes Other/Comment: CAD w/ stent x1 2016 - PULMONARY Hx Respiratory Disorders: Yes Hx Asthma: Yes Hx Chronic Obstructive Pulmonary Disease (COPD): Yes - NEUROLOGICAL Hx Neurological Disorder: No - HEENT Hx HEENT Problems: Yes Hx Cataracts: Yes - RENAL Hx Chronic Kidney Disease: Yes Hx Kidney Stones: Yes - ENDOCRINE/METABOLIC Hx Endocrine Disorders: Yes Hx Diabetes Mellitus Type 2: Yes - HEMATOLOGICAL/ONCOLOGICAL Hx Blood Disorders: No - INTEGUMENTARY Hx Dermatological Problems: No - MUSCULOSKELETAL/RHEUMATOLOGICAL Hx Falls: No - GASTROINTESTINAL Hx Gastrointestinal Disorders: No - GENITOURINARY/GYNECOLOGICAL Hx Genitourinary Disorders: Yes (frequency/retention) Hx Hematuria: Yes Hx Prostate Problems: Yes (S/P TURP; 3WF c [facility]) Other/Comment: had 2 surgical procedures 2 yrs ago for hematuria and passing clots pt does no know what kind of procedures they were - PSYCHIATRIC Hx Psychophysiologic Disorder: No - SURGICAL HISTORY Hx Coronary Stent: Yes (x 1) Other/Comment: TURP x1. HX: 07/09/16-CYSTO WITH BILATERAL RETROGRADE PYELOGRAM , RIGHT URETERAL STENT, CYSTOGRAM. HX: 08/22/16-CYSTO RIGHT URETERAL STENT REMOVAL - ANESTHESIA Hx Anesthesia: Yes Hx Anesthesia Reactions: Yes (BURNING UP ARM TO HEAD BEFORE SEDATED) Hx Malignant Hyperthermia: No Meds Allergies/Adverse Reactions: Allergies Allergy/AdvReac Type Severity Reaction Status Date / Time garlic Allergy Severe SWELLING Verified 11/06/17 15:32 OF FACE AND ITCHINESS onion Allergy Severe SWELLING Verified 11/06/17 15:32 OF FACE AND ITCHINESS pepper (genus Capsicum) Allergy Severe SWELLING Verified 11/06/17 15:32 [pepper] OF FACE AND ITCHINESS - Medications Medications: Current Medications Acetaminophen (Tylenol 325mg Tab) 650 mg PO Q6H PRN PRN Reason: Pain, Mild (1-3) Acetaminophen (Tylenol 325mg Tab) 650 mg PO Q6H PRN PRN Reason: Fever >100.4 F Acetylcysteine (Acetylcysteine 20%) 3 ml IH BIDRESP PRN PRN Reason: Cough and congestion Last Admin: 11/09/17 14:28 Dose: 3 ml Arformoterol Tartrate (Brovana) 15 mcg IH [id number] [facility] Last Admin: 11/09/17 08:05 Dose: 15 mcg Atorvastatin Calcium (Lipitor) 20 mg PO DIN [facility] Last Admin: 11/08/17 18:08 Dose: 20 mg Benzocaine/Menthol (Cepacol Sore Throat) 1 rob MT Q2H PRN PRN Reason: Sore Throat Budesonide (Pulmicort Respules) 0.25 mg IH [id number] [facility] Last Admin: 11/09/17 08:06 Dose: 0.25 mg Cyanocobalamin (Vitamin B12 1000 Mcg Tab) 1,000 mcg PO DAILY [facility] Last Admin: 11/09/17 10:19 Dose: 1,000 mcg Glipizide (Glucotrol) 10 mg PO ACB [facility] Last Admin: 11/09/17 08:30 Dose: 10 mg Guaifenesin/Dextromethorphan (Robitussin Dm) 5 ml PO Q4H PRN PRN Reason: Cough Hydrochlorothiazide (Microzide) 12.5 mg PO DAILY [facility] Last Admin: 11/09/17 10:19 Dose: Not Given Ceftriaxone Sodium (Rocephin 1 Gram Ivpb) 1 gm in 100 mls @ 100 mls/hr IVPB DAILY [facility] PRN Reason: Protocol Last Admin: 11/09/17 10:20 Dose: 100 mls/hr Azithromycin (Zithromax 500mg In Ns) 500 mg in 250 mls @ 167 mls/hr IVPB DAILY [facility] PRN Reason: Protocol Last Admin: 11/09/17 10:19 Dose: 167 mls/hr Insulin Detemir (Levemir) 20 unit SC HS [facility] Last Admin: 11/08/17 22:27 Dose: 20 unit Insulin Human Lispro (Humalog Med) 0 units SC ACHS [facility] PRN Reason: Protocol Last Admin: 11/09/17 08:30 Dose: 5 units Isosorbide Dinitrate (Isordil) 30 mg PO DAILY [facility] Last Admin: 11/09/17 10:18 Dose: 30 mg Levalbuterol HCl (Xopenex) 0.63 mg IH TIDRESP [facility] Last Admin: 11/09/17 13:40 Dose: 0.63 mg Losartan Potassium (Cozaar) 100 mg PO DAILY [facility] Last Admin: 11/09/17 10:16 Dose: 100 mg Methylprednisolone (Solu-Medrol) 30 mg IVP Q6 [facility] Last Admin: 11/09/17 11:02 Dose: 30 mg Ondansetron HCl (Zofran Inj) 4 mg IVP Q4H PRN PRN Reason: Nausea/Vomiting Oxycodone HCl (Oxycodone Immediate Release Tab) 10 mg PO Q8 PRN PRN Reason: Pain, severe (8-10) Last Admin: 11/09/17 07:00 Dose: 10 mg Potassium Chloride (K-Dur 20 Meq Er Tab) 40 meq PO DAILY [facility] Last Admin: 11/09/17 10:18 Dose: 40 meq Tamsulosin HCl (Flomax) 0.4 mg PO DAILY [facility] Last Admin: 11/09/17 10:16 Dose: 0.4 mg Physical Exam - Constitutional Appears: Well, No Acute Distress - Head Exam Head Exam: ATRAUMATIC, NORMOCEPHALIC - Eye Exam Eye Exam: Normal appearance Pupil Exam: NORMAL ACCOMODATION - ENT Exam ENT Exam: Mucous Membranes Moist, Normal Exam - Neck Exam Neck exam: Positive for: Normal Inspection - Respiratory Exam Respiratory Exam: Clear to Auscultation Bilateral, NORMAL BREATHING PATTERN. absent: Prolonged Expiratory Phase, Rales, Rhonchi, Wheezes, Respiratory Distress - Cardiovascular Exam Cardiovascular Exam: REGULAR RHYTHM, +S1, +S2 - GI/Abdominal Exam GI & Abdominal Exam: Normal Bowel Sounds, Soft. absent: Distended, Guarding, Organomegaly, Rebound, Rigid - Extremities Exam Extremities exam: Negative for: joint swelling, pedal edema - Neurological Exam Neurological exam: Alert, Oriented x3 - Psychiatric Exam Psychiatric exam: Normal Affect, Normal Mood - Skin Skin Exam: Dry, Intact, Normal Color, Warm Results - Vital Signs Recent Vital Signs: Last Vital Signs Temp 97.1 F L 11/09/17 06:00 Pulse 66 11/09/17 06:00 Resp 20 11/09/17 06:00 BP 137/96 H 11/09/17 06:00 Pulse Ox 95 11/09/17 06:00 - Labs Result Diagrams: 11/08/17 08:00 11/08/17 08:00 Labs: Laboratory Results - last 24 hr 11/08/17 11/08/17 11/09/17 16:06 21:14 07:35 POC Glucose (mg/dL) 227 H 272 H 254 H 11/09/17 11:45 POC Glucose (mg/dL) 167 H Assessment & Plan - Assessment and Plan (Free Text) Assessment: Don King is a 67M w/ hx of COPD, asthma, hypertension, and arthritis, who presents to the Emergency department complaining of chest pain and shortness of breath. Normocytic Anemia, likely 2/2 mixed etiology of b12 def and HAIDER B12 def HAIDER hx of COPD Plan: -start iron supplement -colonoscopy and EGD as an oupt -start b12 supplements -FOBT -check retic count, celiac profile -diet as tolerated -no plan for procedure during inpt D/W Dr. atwood <Wilbert Atwood V - Last Filed: 11/10/17 00:27> Meds - Medications Medications: Current Medications Acetaminophen (Tylenol 325mg Tab) 650 mg PO Q6H PRN PRN Reason: Pain, Mild (1-3) Acetaminophen (Tylenol 325mg Tab) 650 mg PO Q6H PRN PRN Reason: Fever >100.4 F Acetylcysteine (Acetylcysteine 20%) 3 ml IH BIDRESP PRN PRN Reason: Cough and congestion Last Admin: 11/09/17 14:28 Dose: 3 ml Arformoterol Tartrate (Brovana) 15 mcg IH [id number] [facility] Last Admin: 11/09/17 20:09 Dose: 15 mcg Atorvastatin Calcium (Lipitor) 20 mg PO DIN [facility] Last Admin: 11/09/17 18:18 Dose: 20 mg Benzocaine/Menthol (Cepacol Sore Throat) 1 rob MT Q2H PRN PRN Reason: Sore Throat Last Admin: 11/09/17 18:24 Dose: 1 rob Budesonide (Pulmicort Respules) 0.25 mg IH [id number] [facility] Last Admin: 11/09/17 20:09 Dose: 0.25 mg Cyanocobalamin (Vitamin B12 1000 Mcg Tab) 1,000 mcg PO DAILY [facility] Last Admin: 11/09/17 10:19 Dose: 1,000 mcg Glipizide (Glucotrol) 10 mg PO ACB [facility] Last Admin: 11/09/17 08:30 Dose: 10 mg Guaifenesin/Dextromethorphan (Robitussin Dm) 5 ml PO Q4H PRN PRN Reason: Cough Last Admin: 11/09/17 18:24 Dose: 5 ml Hydrochlorothiazide (Microzide) 12.5 mg PO DAILY [facility] Last Admin: 11/09/17 10:19 Dose: Not Given Ceftriaxone Sodium (Rocephin 1 Gram Ivpb) 1 gm in 100 mls @ 100 mls/hr IVPB DAILY [facility] PRN Reason: Protocol Last Admin: 11/09/17 10:20 Dose: 100 mls/hr Azithromycin (Zithromax 500mg In Ns) 500 mg in 250 mls @ 167 mls/hr IVPB DAILY [facility] PRN Reason: Protocol Last Admin: 11/09/17 10:19 Dose: 167 mls/hr Insulin Detemir (Levemir) 20 unit SC HS [facility] Last Admin: 11/09/17 21:21 Dose: 20 unit Insulin Human Lispro (Humalog Med) 0 units SC ACHS [facility] PRN Reason: Protocol Last Admin: 11/09/17 21:18 Dose: Not Given Isosorbide Dinitrate (Isordil) 30 mg PO DAILY [facility] Last Admin: 11/09/17 10:18 Dose: 30 mg Levalbuterol HCl (Xopenex) 0.63 mg IH TIDRESP [facility] Last Admin: 11/09/17 20:09 Dose: 0.63 mg Losartan Potassium (Cozaar) 100 mg PO DAILY [facility] Last Admin: 11/09/17 10:16 Dose: 100 mg Methylprednisolone (Solu-Medrol) 30 mg IVP Q6 [facility] Last Admin: 11/09/17 23:07 Dose: 30 mg Ondansetron HCl (Zofran Inj) 4 mg IVP Q4H PRN PRN Reason: Nausea/Vomiting Oxycodone HCl (Oxycodone Immediate Release Tab) 10 mg PO Q8 PRN PRN Reason: Pain, severe (8-10) Last Admin: 11/09/17 20:35 Dose: 10 mg Potassium Chloride (K-Dur 20 Meq Er Tab) 40 meq PO DAILY [facility] Last Admin: 11/09/17 10:18 Dose: 40 meq Tamsulosin HCl (Flomax) 0.4 mg PO DAILY [facility] Last Admin: 11/09/17 10:16 Dose: 0.4 mg Results - Vital Signs Recent Vital Signs: Last Vital Signs Temp 98.1 F 11/09/17 17:16 Pulse 55 L 11/09/17 17:16 Resp 20 11/09/17 17:16 BP 122/83 11/09/17 17:16 Pulse Ox 94 L 11/09/17 17:16 - Labs Result Diagrams: 11/08/17 08:00 11/08/17 08:00 Labs: Laboratory Results - last 24 hr 11/09/17 11/09/17 11/09/17 07:35 11:45 16:06 POC Glucose (mg/dL) 254 H 167 H 271 H 11/09/17 21:15 POC Glucose (mg/dL) 272 H Attending/Attestation - Attestation I have personally seen and examined this patient.: Yes I have fully participated in the care of the patient.: Yes I have reviewed all pertinent clinical information: Yes Notes (Text): This is an addendum to GI consult report dictated by the GI Fellow.The patient was seen and examined earlier. Medical records, lab studies, imagings were reviewed. Last 24 hours events reviewed. Agreed with the above treatment plan as outlined in GI Fellow 's notes the with the addition of the following history of B12 deficiency and iron deficiency this patient never had EGD or colonoscpy on examination abdomen soft no enderness no mass no tenderness Would request stool for occult blood, celiac disease profile reticulocyte count Close follow-up of hemoglobin elective EGD and colonoscopy 11/10/17 00:23
--- NOTE | 2017-11-09 14:59 | PN ---
DATE: 11/09/2017 SUBJECTIVE: This 67-year-old male was examined at the bedside on the cardiac jamison. His case was reviewed in detail with nurse, Pam Clement. He remains weak and deconditioned with cough and congestion and is tolerating parenteral antibiotics, pulmonary toiletry and IV Solu-Medrol. He was seen by Dr. Domo Richards from Urology who is planning a cystoscopy for his multiple urological complaints including urinary retention, frequency and hematuria and a history of benign prostatic hypertrophy in the past. PHYSICAL EXAMINATION: VITAL SIGNS: At present, he remains in a sinus rhythm on the athletic monitor with temperature 97.1, respirations 20, pulse 66 and blood pressure 137/96 with a pulse ox of 95% room air. HEENT: Head: Normocephalic, atraumatic. Eyes: No icterus. Ears: Clear. Throat: Noninjected. NECK: Supple. HEART: Regular S1, S2. No pathological rubs, murmurs or gallops. LUNGS: With occasional rhonchi and expiratory wheezing that clear with coughing. ABDOMEN: Soft. EXTREMITIES: No edema. SKIN: Without rash. NEUROLOGICAL: Intact. PSYCHOLOGICAL: Alert. VASCULAR: Legs warm to touch. LABORATORY DATA: White count 16,300, hemoglobin 11, hematocrit 33.6, platelets 237,000. PT/INR 1.09, PTT 28.3. Sodium 146, K 4.2, chloride 112, bicarb 21, BUN 28, creatinine 1.1, random blood sugar was 254, bilirubin 0.3, AST 13, ALT 25, alk phos 71, calcium 9.7. Urinalysis was unremarkable. Transferrin saturation level 12, low; B12 level was 233, low; folic acid 9.5, normal. Cholesterol 191, triglycerides 46, LDL 124 and HDL 55. IMPRESSION: This is a 67-year-old male with multiple medical problems including exacerbation of chronic obstructive pulmonary disease, chronic hypertension, benign prostatic hypertrophy, history of urinary tract retention, uncontrolled insulin-dependent diabetes mellitus, stable atherosclerotic heart disease, hyperlipidemia, anemia of chronic disease, anemia of iron deficiency, B12 deficiency and degenerative arthritis and anxiety neurosis. PLAN: As discussed with the patient and nursing will be to continue Brovana, Cepacol, Cozaar, Flomax, Glucotrol, medium Humalog insulin coverage before meals and at bedtime, Imdur, K-Dur, Levemir, Lipitor, hydrochlorothiazide, oxycodone, Pulmicort inhalational therapy, Robitussin DM, IV Rocephin, IV Zithromax, IV Solu-Medrol, Tylenol, sublingual B12, Xopenex and Zofran p.r.n. the patient is awaiting evaluations by Dr. Wilbert Atwood from GI and Dr. Domo Richards from Urology. Based on his clinical progress, additional testing and workup will be entertained. The patient will require an endoscopy and colonoscopy and is aware of that as well. Greater than 35 minutes was spent in the care management and counseling of this patient today regarding all of the above issues. All questions were answered. Constance Lozano MD MTDD
[2017-11-09] MEDS: Benzocaine/Menthol (Cepacol) Lozenge MT PRN (18:24)
[2017-11-09] MEDS: Insulin Detemir 100 units/ml Vial (Levemir) SC SCH (21:21)
[2017-11-10] MEDS: MethylPREDNISolone 40 mg Vial IVP SCH ×3 (05:29→20:15)
[2017-11-10] MEDS: Arformoterol 15 mcg/2 ml Inh Sol IH SCH ×2 (08:11→20:26)
[2017-11-10] MEDS: Levalbuterol 0.63 MG/3 ML Inhal Soln UD IH SCH ×3 (08:11→20:27)
[2017-11-10] MEDS: Budesonide 0.25 mg/2 ml Inhal Susp UD IH SCH ×2 (08:11→20:26)
[2017-11-10] MEDS: Acetylcysteine 20% Inhal Soln (4ml) IH PRN (08:16)
[2017-11-10] MEDS: Insulin Lispro (humaLOG) MEDIUM Coverage SC SCH ×3 (08:21→21:16)
[2017-11-10] MEDS: oxyCODONE 10 mg Immediate Release Tab PO PRN ×2 (10:34→19:09)
[2017-11-10] MEDS: Potassium Chloride 20 mEq ER Tab PO SCH (10:34)
[2017-11-10] MEDS: Benzocaine/Menthol (Cepacol) Lozenge MT PRN (10:35)
[2017-11-10] MEDS: cefTRIAXone 1 gm 1 GM/100 ML BAG IVPB SCH (10:37)
[2017-11-10] MEDS: Azithromycin 500MG/NS 250ml 500 MG/250 ML BAG IVPB SCH (10:37)
--- NOTE | 2017-11-10 12:11 | PN ---
DATE: 11/10/2017 SUBJECTIVE: This 67-year-old male was examined at the bedside. Case was reviewed in detail with himself and nursing. The patient remains hospitalized with exacerbation of chronic obstructive pulmonary disease and urological issues including urinary retention, frequency, painful urination and benign prostate hypertrophy. The patient is being followed by Dr. Domo Richards from Urology and will be scheduled for cystoscopy when medically stable. At present, he denies fever, chills, chest pain or shortness of breath. PHYSICAL EXAMINATION: VITAL SIGNS: On physical exam, temperature was 97.9, respirations 20, pulse 55 and blood pressure 131/82 with a pulse ox of 97% on room air. HEENT: Head normocephalic, atraumatic. Eyes: No icterus. Ears: Clear. Throat: Noninjected. NECK: Supple. HEART: Regular S1, S2. LUNGS: With rhonchi and occasional expiratory wheezing that cleared with coughing. ABDOMEN: Soft. EXTREMITIES: No edema. SKIN: Without rash. NEUROLOGICAL: Intact. PSYCHOLOGICAL: Alert and anxious. VASCULAR: Legs warm to touch. LABORATORY DATA: White count 16,300, hemoglobin 11, hematocrit 33.6, platelets 237,000. PT/INR 1.09, PTT 28.3. Random blood sugar was 340 mg prior to lunch today. Sodium 146, K 4.2, chloride 112, bicarb 21, BUN 28, creatinine 1.1, calcium 9.7, AST 13, ALT 25, alk phos 71 and bilirubin 0.3, hemoglobin A1c 7.7. Cholesterol 191, LDL 124, triglycerides 46 and HDL 55. B12 level was low at 233. Folate normal 9.5, ferritin low 21.2, percent saturation low 12%. IMPRESSION: A 67-year-old male with exacerbation of chronic obstructive pulmonary disease, now receiving Mucomyst 3 mL inhalational b.i.d. p.r.n. congestion as well as Brovana inhalational therapy b.i.d., Cozaar 100 mg p.o. daily, Flomax 0.4 mg p.o. daily, Glucotrol 10 mg daily, medium protocol Humalog regular insulin before meals and at bedtime, Imdur 30 mg p.o. daily, K-Dur 20 mEq p.o. daily, Levemir 20 units at bedtime, Lipitor 20 mg at dinner time, hydrochlorothiazide 12.5 mg p.o. daily, Pulmicort inhalational therapy every 12 hours, Robitussin 5 mL p.o. every 4 hours p.r.n. cough, Solu-Medrol 30 mg IV every 8 hours and vitamin B12 1000 mcg sublingual as well as Xopenex inhalational therapy t.i.d. The patient will proceed with cystoscopy. He is awaiting evaluation by Dr. Wilbert Atwood from GI. He is aware that he will need an endoscopy and colonoscopy for completeness sake given his iron-deficiency anemia indices as well as low vitamin B12 levels and I will discuss this further with Dr. Wilbert Atwood from GI. Greater than 35 minutes was spent in the care management, review of labs, orders, x-rays, adjustment of medication and outlining of care for this patient today. All questions were answered. Constance Lozano MD MTDD
[2017-11-10 12:13] LABS: HEMOGLOBIN 11.3 g/dL (14.0-18.0); MEAN CELL VOLUME 97.4 fl (80.0-105.0); MEAN CORPUSCULAR HEMOGLOBIN 32.5 pg (25.0-35.0); MEAN CORPUSCULAR HGB CONC 33.3 g/dl (31.0-37.0); RBC 3.48 10^6/uL (3.5-6.1); RED CELL DISTRIBUTION WIDTH 14.3 % (11.5-14.5); WHITE BLOOD COUNT 14.1 10^3/ul (4.5-11.0)
[2017-11-10 12:25] LABS: ALB/GLOB RATIO 1.2 (1.1-1.8); ALBUMIN 3.4 g/dL (3.0-4.8); ALT/SGPT 29 U/L (7-56); AST/SGOT 24 U/L (17-59); BLOOD UREA NITROGEN 38 mg/dL (7-21); CALCIUM 9.3 mg/dL (8.4-10.5); GFR AFRICAN-AMERICAN > 60; GFR NON-AFRICAN AMERICAN > 60
[2017-11-10] MEDS: Acetylcysteine 20% Inhal Soln (4ml) IH SCH ×2 (14:04→20:26)
--- NOTE | 2017-11-10 15:17 | CP.PCM.PN ---
<Hector Morton - Last Filed: 11/10/17 15:28> Subjective - Date & Time of Evaluation Date of Evaluation: 11/10/17 Time of Evaluation: 07:30 - Subjective Subjective: PGY6 GI Fellow Progress Note Patient seen and examined bedside this morning. The patient was found ambulating to the restroom this morning. At present, no complaints. Denies any abdominal pain presently and had no overt GI bleeding. Does note hematuria which has been ongoing. 12 system ROS performed and negative except where stated. Objective - Vital Signs/Intake and Output Vital Signs (last 24 hours): Temp Pulse Resp BP Pulse Ox 97.9 F 55 L 20 131/82 97 11/10/17 08:40 11/10/17 08:40 11/10/17 08:40 11/10/17 08:40 11/10/17 08:40 Intake and Output: 11/10/17 11/10/17 06:59 18:59 Intake Total 540 300 Output Total 300 Balance 240 300 - Medications Medications: Current Medications Acetaminophen (Tylenol 325mg Tab) 650 mg PO Q6H PRN PRN Reason: Pain, Mild (1-3) Acetaminophen (Tylenol 325mg Tab) 650 mg PO Q6H PRN PRN Reason: Fever >100.4 F Acetylcysteine (Acetylcysteine 20%) 4 ml IH BID [facility] Last Admin: 11/10/17 14:04 Dose: 4 ml Arformoterol Tartrate (Brovana) 15 mcg IH [id number] [facility] Last Admin: 11/10/17 08:11 Dose: 15 mcg Atorvastatin Calcium (Lipitor) 20 mg PO DIN [facility] Last Admin: 11/09/17 18:18 Dose: 20 mg Azithromycin (Zithromax) 500 mg PO DAILY [facility] PRN Reason: Protocol Benzocaine/Menthol (Cepacol Sore Throat) 1 rob MT Q2H PRN PRN Reason: Sore Throat Last Admin: 11/10/17 10:35 Dose: 1 rob Budesonide (Pulmicort Respules) 0.25 mg IH [id number] [facility] Last Admin: 11/10/17 08:11 Dose: 0.25 mg Cyanocobalamin (Vitamin B12 1000 Mcg Tab) 1,000 mcg PO DAILY [facility] Last Admin: 11/10/17 10:35 Dose: 1,000 mcg Glipizide (Glucotrol) 10 mg PO ACB [facility] Last Admin: 11/10/17 08:21 Dose: 10 mg Guaifenesin/Dextromethorphan (Robitussin Dm) 5 ml PO Q4H PRN PRN Reason: Cough Last Admin: 11/09/17 18:24 Dose: 5 ml Hydrochlorothiazide (Microzide) 12.5 mg PO DAILY [facility] Last Admin: 11/10/17 10:34 Dose: 12.5 mg Ceftriaxone Sodium (Rocephin 1 Gram Ivpb) 1 gm in 100 mls @ 100 mls/hr IVPB DAILY [facility] PRN Reason: Protocol Insulin Detemir (Levemir) 20 unit SC HS [facility] Last Admin: 11/09/17 21:21 Dose: 20 unit Insulin Human Lispro (Humalog Med) 0 units SC ACHS [facility] PRN Reason: Protocol Last Admin: 11/10/17 13:04 Dose: 7 units Isosorbide Dinitrate (Isordil) 30 mg PO DAILY [facility] Last Admin: 11/10/17 10:33 Dose: 30 mg Levalbuterol HCl (Xopenex) 0.63 mg IH TIDRESP [facility] Last Admin: 11/10/17 13:51 Dose: 0.63 mg Losartan Potassium (Cozaar) 100 mg PO DAILY [facility] Last Admin: 11/10/17 10:32 Dose: 100 mg Methylprednisolone (Solu-Medrol) 30 mg IVP Q8H [facility] Last Admin: 11/10/17 13:16 Dose: 30 mg Ondansetron HCl (Zofran Inj) 4 mg IVP Q4H PRN PRN Reason: Nausea/Vomiting Oxycodone HCl (Oxycodone Immediate Release Tab) 10 mg PO Q8 PRN PRN Reason: Pain, severe (8-10) Last Admin: 11/10/17 10:34 Dose: 10 mg Potassium Chloride (K-Dur 20 Meq Er Tab) 40 meq PO DAILY [facility] Last Admin: 11/10/17 10:34 Dose: 40 meq Tamsulosin HCl (Flomax) 0.4 mg PO DAILY [facility] Last Admin: 11/10/17 10:32 Dose: 0.4 mg - Labs Labs: 11/10/17 12:00 11/10/17 12:00 PT 12.5 SECONDS (9.4-12.5) 11/06/17 15:08 INR 1.09 (0.93-1.08) H 11/06/17 15:08 APTT 28.3 Seconds (25.1-36.5) 11/06/17 15:08 - Constitutional Appears: Non-toxic, No Acute Distress - Eye Exam Eye Exam: EOMI, PERRL - ENT Exam ENT Exam: Mucous Membranes Moist - Respiratory Exam Respiratory Exam: Clear to Ausculation Bilateral. absent: Rales, Rhonchi, Wheezes - Cardiovascular Exam Cardiovascular Exam: RRR, +S1, +S2 - GI/Abdominal Exam GI & Abdominal Exam: Soft, Normal Bowel Sounds. absent: Distended, Firm, Guarding, Rigid, Tenderness, Organomegaly - Extremities Exam Extremities Exam: Normal Inspection. absent: Pedal Edema - Neurological Exam Neurological Exam: Alert, Awake, Oriented x3 - Psychiatric Exam Psychiatric exam: Normal Affect, Normal Mood - Skin Skin Exam: Dry, Warm Assessment and Plan - Assessment and Plan (Free Text) Assessment: Patient is a 67yo male with PMHx significant for hematuria, COPD, HTN, arthritis who presented to the hospital with chest pain and shortness of breath. Our service is consulted for anemia. -Anemia - Iron and B12 deficiency noted -Ongoing hematuria Plan: -Iron deficiency in the setting of ongoing hematuria -Plan for cystoscopy today, await findings -May benefit from updated cross-sectional imaging - CT scan Abd/pelvis with contrast -Recommend endoscopic evaluation once acute issues resolve -Iron and B12 supplementation as indicated -Consider checking intrinsic factor Ab re: pernicious anemia <Rai,Kovil V - Last Filed: 11/10/17 23:52> Objective - Vital Signs/Intake and Output Vital Signs (last 24 hours): Temp Pulse Resp BP Pulse Ox 97.6 F 91 H 3 L 151/78 H 99 11/10/17 18:45 11/10/17 18:45 11/10/17 18:45 11/10/17 18:45 11/10/17 18:45 Intake and Output: 11/10/17 11/11/17 18:59 06:59 Intake Total 300 300 Balance 300 300 - Medications Medications: Current Medications Acetaminophen (Tylenol 325mg Tab) 650 mg PO Q6H PRN PRN Reason: Pain, Mild (1-3) Acetaminophen (Tylenol 325mg Tab) 650 mg PO Q6H PRN PRN Reason: Fever >100.4 F Acetylcysteine (Acetylcysteine 20%) 4 ml IH BID [facility] Last Admin: 11/10/17 20:26 Dose: 4 ml Arformoterol Tartrate (Brovana) 15 mcg IH [id number] [facility] Last Admin: 11/10/17 20:26 Dose: 15 mcg Atorvastatin Calcium (Lipitor) 20 mg PO DIN [facility] Last Admin: 11/09/17 18:18 Dose: 20 mg Azithromycin (Zithromax) 500 mg PO DAILY [facility] PRN Reason: Protocol Benzocaine/Menthol (Cepacol Sore Throat) 1 rob MT Q2H PRN PRN Reason: Sore Throat Last Admin: 11/10/17 10:35 Dose: 1 rob Budesonide (Pulmicort Respules) 0.25 mg IH [id number] [facility] Last Admin: 11/10/17 20:26 Dose: 0.25 mg Cyanocobalamin (Vitamin B12 1000 Mcg Tab) 1,000 mcg PO DAILY [facility] Last Admin: 11/10/17 10:35 Dose: 1,000 mcg Glipizide (Glucotrol) 10 mg PO ACB [facility] Last Admin: 11/10/17 08:21 Dose: 10 mg Guaifenesin/Dextromethorphan (Robitussin Dm) 5 ml PO Q4H PRN PRN Reason: Cough Last Admin: 11/09/17 18:24 Dose: 5 ml Hydrochlorothiazide (Microzide) 12.5 mg PO DAILY [facility] Last Admin: 11/10/17 10:34 Dose: 12.5 mg Ceftriaxone Sodium (Rocephin 1 Gram Ivpb) 1 gm in 100 mls @ 100 mls/hr IVPB DAILY [facility] PRN Reason: Protocol Insulin Detemir (Levemir) 20 unit SC HS [facility] Last Admin: 11/10/17 21:17 Dose: 20 unit Insulin Human Lispro (Humalog Med) 0 units SC ACHS [facility] PRN Reason: Protocol Last Admin: 11/10/17 21:16 Dose: 2 units Isosorbide Dinitrate (Isordil) 30 mg PO DAILY [facility] Last Admin: 11/10/17 10:33 Dose: 30 mg Levalbuterol HCl (Xopenex) 0.63 mg IH TIDRESP [facility] Last Admin: 11/10/17 20:27 Dose: 0.63 mg Losartan Potassium (Cozaar) 100 mg PO DAILY [facility] Last Admin: 11/10/17 10:32 Dose: 100 mg Methylprednisolone (Solu-Medrol) 30 mg IVP Q8H [facility] Last Admin: 11/10/17 20:15 Dose: Not Given Ondansetron HCl (Zofran Inj) 4 mg IVP Q4H PRN PRN Reason: Nausea/Vomiting Oxycodone HCl (Oxycodone Immediate Release Tab) 10 mg PO Q8 PRN PRN Reason: Pain, severe (8-10) Last Admin: 11/10/17 19:09 Dose: 10 mg Potassium Chloride (K-Dur 20 Meq Er Tab) 40 meq PO DAILY [facility] Last Admin: 11/10/17 10:34 Dose: 40 meq Tamsulosin HCl (Flomax) 0.4 mg PO DAILY [facility] Last Admin: 11/10/17 10:32 Dose: 0.4 mg - Labs Labs: 11/10/17 12:00 11/10/17 12:00 PT 12.5 SECONDS (9.4-12.5) 11/06/17 15:08 INR 1.09 (0.93-1.08) H 11/06/17 15:08 APTT 28.3 Seconds (25.1-36.5) 11/06/17 15:08 Attending/Attestation - Attestation I have personally seen and examined this patient.: Yes I have fully participated in the care of the patient.: Yes I have reviewed all pertinent clinical information, including history, physical exam and plan: Yes Notes (Text): This is an addendum to GI progress report dictated by the GI Fellow.The patient was seen and examined earlier. Medical records, lab studies, imagings were reviewed. Last 24 hours events reviewed. Agreed with the above treatment plan as outlined in GI Fellow 's notes the with the addition of the following history of B12 deficiency Iron deficiency History is hematuria planned for cystoscopy today Would benefit from endoscopy as an initial GI evaluati 11/10/17 23:45
[2017-11-10] MEDS ORDERED: Lidocaine 2% Jelly (Uro-Jet) ONE (16:11)
[2017-11-10] MEDS ORDERED: Iohexol 240 (50 ml) ONE (16:12)
[2017-11-10] MEDS ORDERED: Propofol 10 mg/ml Inj (20 ML) ONE (17:24)
[2017-11-10] MEDS ORDERED: Midazolam 2 MG/2 ML VIAL ONE (17:25)
[2017-11-10] MEDS ORDERED: Lidocaine 2% Inj (20ml) ONE (17:31)
[2017-11-10] MEDS ORDERED: Albuterol HFA 90 mcg/actuation (8 g) ONE (17:35)
[2017-11-10] MEDS: Insulin Detemir 100 units/ml Vial (Levemir) SC SCH (21:17)
[2017-11-11] MEDS: MethylPREDNISolone 40 mg Vial IVP SCH ×2 (03:35→12:12)
[2017-11-11 06:41] VITALS: BP 127/92; PULSE 68; RESP 20; TEMP 97.8; O2SAT 97
[2017-11-11] MEDS: Arformoterol 15 mcg/2 ml Inh Sol IH SCH (08:07)
[2017-11-11] MEDS: Budesonide 0.25 mg/2 ml Inhal Susp UD IH SCH (08:08)
[2017-11-11] MEDS: Levalbuterol 0.63 MG/3 ML Inhal Soln UD IH SCH ×2 (08:08→13:17)
--- NOTE | 2017-11-11 08:25 | CP.PCM.PN ---
Subjective - Date & Time of Evaluation Date of Evaluation: 11/11/17 Time of Evaluation: 07:20 - Subjective Subjective: PGY6 GI Fellow Progress Note Patient seen and examined bedside. The patient states he is feeling well with some mild lower abdominal/suprapubic pain. Passing blood clots with urine. No overt GI blood loss noted by patient. Denies any fever, chills. 12 system ROS performed and negative except where stated. Objective - Vital Signs/Intake and Output Vital Signs (last 24 hours): Temp Pulse Resp BP Pulse Ox 97.8 F 68 20 127/92 H 97 11/11/17 08:07 11/11/17 08:07 11/11/17 08:07 11/11/17 08:07 11/11/17 08:07 Intake and Output: 11/11/17 11/11/17 06:59 18:59 Intake Total 540 Balance 540 - Medications Medications: Current Medications Acetaminophen (Tylenol 325mg Tab) 650 mg PO Q6H PRN PRN Reason: Pain, Mild (1-3) Acetaminophen (Tylenol 325mg Tab) 650 mg PO Q6H PRN PRN Reason: Fever >100.4 F Acetylcysteine (Acetylcysteine 20%) 4 ml IH BID [facility] Last Admin: 11/10/17 20:26 Dose: 4 ml Arformoterol Tartrate (Brovana) 15 mcg IH [id number] [facility] Last Admin: 11/11/17 08:07 Dose: 15 mcg Atorvastatin Calcium (Lipitor) 20 mg PO DIN [facility] Last Admin: 11/09/17 18:18 Dose: 20 mg Azithromycin (Zithromax) 500 mg PO DAILY [facility] PRN Reason: Protocol Benzocaine/Menthol (Cepacol Sore Throat) 1 rob MT Q2H PRN PRN Reason: Sore Throat Last Admin: 11/10/17 10:35 Dose: 1 rob Budesonide (Pulmicort Respules) 0.25 mg IH [id number] [facility] Last Admin: 11/11/17 08:08 Dose: 0.25 mg Cyanocobalamin (Vitamin B12 1000 Mcg Tab) 1,000 mcg PO DAILY [facility] Last Admin: 11/10/17 10:35 Dose: 1,000 mcg Glipizide (Glucotrol) 10 mg PO ACB [facility] Last Admin: 11/10/17 08:21 Dose: 10 mg Guaifenesin/Dextromethorphan (Robitussin Dm) 5 ml PO Q4H PRN PRN Reason: Cough Last Admin: 11/09/17 18:24 Dose: 5 ml Hydrochlorothiazide (Microzide) 12.5 mg PO DAILY [facility] Last Admin: 11/10/17 10:34 Dose: 12.5 mg Ceftriaxone Sodium (Rocephin 1 Gram Ivpb) 1 gm in 100 mls @ 100 mls/hr IVPB DAILY [facility] PRN Reason: Protocol Insulin Detemir (Levemir) 20 unit SC HS [facility] Last Admin: 11/10/17 21:17 Dose: 20 unit Insulin Human Lispro (Humalog Med) 0 units SC ACHS [facility] PRN Reason: Protocol Last Admin: 11/10/17 21:16 Dose: 2 units Isosorbide Dinitrate (Isordil) 30 mg PO DAILY [facility] Last Admin: 11/10/17 10:33 Dose: 30 mg Levalbuterol HCl (Xopenex) 0.63 mg IH TIDRESP [facility] Last Admin: 11/11/17 08:08 Dose: 0.63 mg Losartan Potassium (Cozaar) 100 mg PO DAILY [facility] Last Admin: 11/10/17 10:32 Dose: 100 mg Methylprednisolone (Solu-Medrol) 30 mg IVP Q8H [facility] Last Admin: 11/11/17 03:35 Dose: Not Given Ondansetron HCl (Zofran Inj) 4 mg IVP Q4H PRN PRN Reason: Nausea/Vomiting Oxycodone HCl (Oxycodone Immediate Release Tab) 10 mg PO Q8 PRN PRN Reason: Pain, severe (8-10) Last Admin: 11/10/17 19:09 Dose: 10 mg Potassium Chloride (K-Dur 20 Meq Er Tab) 40 meq PO DAILY [facility] Last Admin: 11/10/17 10:34 Dose: 40 meq Tamsulosin HCl (Flomax) 0.4 mg PO DAILY [facility] Last Admin: 11/10/17 10:32 Dose: 0.4 mg - Labs Labs: 11/10/17 12:00 11/10/17 12:00 PT 12.5 SECONDS (9.4-12.5) 11/06/17 15:08 INR 1.09 (0.93-1.08) H 11/06/17 15:08 APTT 28.3 Seconds (25.1-36.5) 11/06/17 15:08 - Constitutional Appears: Non-toxic, No Acute Distress - Eye Exam Eye Exam: EOMI, PERRL - ENT Exam ENT Exam: Mucous Membranes Moist - Respiratory Exam Respiratory Exam: Clear to Ausculation Bilateral. absent: Rales, Rhonchi, Wheezes - Cardiovascular Exam Cardiovascular Exam: RRR, +S1, +S2 - GI/Abdominal Exam GI & Abdominal Exam: Soft, Tenderness (suprapubic), Normal Bowel Sounds. absent : Distended, Firm, Guarding, Rigid, Organomegaly - Extremities Exam Extremities Exam: Normal Inspection. absent: Pedal Edema - Neurological Exam Neurological Exam: Alert, Awake, Oriented x3 - Psychiatric Exam Psychiatric exam: Normal Affect, Normal Mood - Skin Skin Exam: Dry, Warm Assessment and Plan - Assessment and Plan (Free Text) Assessment: Patient is a 67yo male with PMHx significant for hematuria, COPD, HTN, arthritis who presented to the hospital with chest pain and shortness of breath. Our service is consulted for anemia. -Anemia - Iron and B12 deficiency noted -Ongoing hematuria s/p cystoscopy with fulguration Plan: -Patient will ultimately benefit from endoscopic evaluation -Would start with EGD given ongoing HAIDER/B12 deficiency to R/O malabsorption/ celiac, atrophic gastritis, autoimmune gastritis or underlying pernicious anemia -Ongoing urological evaluation, s/p cystoscopy - now passing blood clots -Intrinsic factor Ab sent this morning, celiac panel pending -May benefit from updated cross-sectional imaging - CT scan Abd/pelvis with contrast -Patient was told to have only liquid diet but ate regular diet this morning for breakfast -Work up can be completed outpatient
[2017-11-11] MEDS: Insulin Lispro (humaLOG) MEDIUM Coverage SC SCH ×3 (08:27→12:12)
[2017-11-11] MEDS ORDERED: cefTRIAXone 1 gm 1 GM/100 ML BAG IVPB SCH (10:00)
[2017-11-11] MEDS: Potassium Chloride 20 mEq ER Tab PO SCH (10:15)
[2017-11-11] MEDS: Acetylcysteine 20% Inhal Soln (4ml) IH SCH (13:17)
--- NOTE | 2017-11-17 03:09 | PN ---
DATE: 11/16/2017 IMMEDIATE POSTOP NOTE SUBJECTIVE: See the history and physical and consultation and the operative note. A very pleasant gentleman here now, just underwent a cystoscopy. In the recovery room in stable condition. He is status post cystoscopy. There were no complications, but now in the recovery, there is some questions. Patient remains stable. Vital signs are good. Within normal limit. See the history and physical for further details and consultation, but basically he has significant voiding dysfunction. He would still like to rule out malignancy. Although, see the operative note. So, at this point, we are going to keep the patient in the recovery room and then bring to the same day in stable condition. Vital signs noted. Discharged home with antibiotic prophylaxis. Domo Richards MD
--- NOTE | 2017-11-17 06:57 | OP ---
PROCEDURE DATE: 11/10/2017 UROLOGY OPERATIVE NOTE This is a urology emergency cystoscopy procedure. PREOPERATIVE DIAGNOSES: Voiding dysfunction, decreased force of stream, hematuria, incomplete bladder emptying specifically, recurrent episodes of retention although currently he is not in retention and history of I believe bladder cancer (I need to check old record). POSTOPERATIVE DIAGNOSES: Voiding dysfunction, decreased force of stream, hematuria, incomplete bladder emptying specifically, recurrent episodes of retention although currently he is not in retention and history of I believe bladder cancer (I need to check old record). There is a lesion in the bladder on the patient's left side; on the right side of the screen - see the pictures that are enclosed in the chart. No biopsies were taken today. See below. PROCEDURE: Cystoscopy only. COMPLICATIONS: There were no complications. BLOOD LOSS: Noted. There is a blood tinge to the urine. Probably, less than 20 mL of blood loss. FINDINGS: Normal anterior urethra. No strictures. The verumontanum is visually occlusive, about 3 cm in length. I do not think it is [place] anatomy. The other thing on the patient's left side of the bladder, there is some lesion. I cannot see the exact orifice on that side. See below plan, but he needs the biopsy but today was very concerning regarding anesthesia and his general health. See below plans and addendum. Anyway, there were no complications. This lesion is to be biopsied. INDICATIONS: See history and physical for further details and complication. A very pleasant gentleman, extremely noncompliant from years back. So, while he came to hospital with an exacerbation of COPD and he is having gross hematuria, we brought him for the above-listed procedure. See the plans and the addendum at the end. My recommendation is going to be for further diagnostic studies. I explained this to the patient today. We will explain it to him again tomorrow after seeing the notes. DESCRIPTION OF PROCEDURE: After obtaining informed consent, the patient was placed on the table. Routine monitors were placed. Time-out was called. Patient . Antibiotics had been used. Anesthesia provided. Time-out was called to confirm patient positioning. We introduced cystoscope via urethra. No strictures. The verumontanum is visually occlusive. About 3 cm in length but it does not look exactly [place], but it is still very occlusive. The ureteral orifices were not identified well. On the left side of the bladder along the base, mostly on the lateral wall, there was some abnormality. We saw a mass like effect. I took multiple pictures. I do not think it is just the extension of the prostate, perhaps something was resected near the bladder neck of the prostate and that this was there beforehand. It does not look normal, but it does not look overly aggressively malignant. Given the anesthesia, the time of the day, and many other factors and his history and he is here for an exacerbation of COPD to do a biopsy without further discussions and risks of bleeding etc. So, at this point, we just terminated the procedure. Patient tolerated it without complication. ADDENDUM I explained to him that he still requires cystoscopy, biopsy, fulguration perhaps even a full resection. We will discuss the timing for this. Further plans will follow. Domo Richards MD
== END 2017-11-11 13:49 | disposition home or self-care (01) | DRG 191 ==
LOC: ED 15:08 → ERH 17:23 → 3RSO 20:34
PROVIDERS: ADMIT Internal Medicine; ATTEND Internal Medicine
PROC: 0TJB8ZZ Inspection of Bladder, Via Natural or Artificial Opening Endoscopic (ICD-10-PCS; principal; 2017-11-10 16:00)
DX: J44.1 Chronic obstructive pulmonary disease with (acute) exacerbation (principal); N02.9 Recurrent and persistent hematuria with unspecified morphologic changes; D50.9 Iron deficiency anemia, unspecified; D63.8 Anemia in other chronic diseases classified elsewhere; E11.22 Type 2 diabetes mellitus with diabetic chronic kidney disease; E53.8 Deficiency of other specified B group vitamins; E78.5 Hyperlipidemia, unspecified; F41.1 Generalized anxiety disorder; I12.9 Hypertensive chronic kidney disease with stage 1 through stage 4 chronic kidney disease, or unspecified chronic kidney disease; I25.10 Atherosclerotic heart disease of native coronary artery without angina pectoris; K90.0 Celiac disease; N18.9 Chronic kidney disease, unspecified; N35.9 Urethral stricture, unspecified; N40.1 Benign prostatic hyperplasia with lower urinary tract symptoms; Z79.4 Long term (current) use of insulin; Z79.899 Other long term (current) drug therapy; Z87.442 Personal history of urinary calculi; Z87.891 Personal history of nicotine dependence; Z90.79 Acquired absence of other genital organ(s); Z91.19 Patient's noncompliance with other medical treatment and regimen; Z95.5 Presence of coronary angioplasty implant and graft

== ENCOUNTER 2017-12-20 15:02 | Emergency (ER) | payer MEDICAID, MEDICARE ==
[2017-12-20 15:02] VITALS: BMI 26.6
[2017-12-20 15:11] VITALS: TEMP 98.3
--- NOTE | 2017-12-20 15:42 | ED PDOC ---
Arrival/HPI - General Chief Complaint: Male Genitourinary Time Seen by Provider: 12/20/17 15:10 Historian: Patient - History of Present Illness Narrative History of Present Illness (Text): 12/20/17 15:20 67 year old male, pmh including hypertension/hypercholesterolemia/Diabetes/copd , nkda, complaining of urinary retention x 1 day. Pt. stated that he had TURP done about [address] Richards, discharge home with flomax which he has not been taking it due to he lost his prescription, been having weak stream urine for the past 24 hours, feeling bladder is distended, no chest pain or shortness of breath, no night sweat, no numbness ro tingling, no palpitation, no other medical or psychological complaints. Past Medical History - Provider Review Nursing Documentation Reviewed: Yes - Infectious Disease Hx of Infectious Diseases: None - Cardiac Hx Cardiac Disorders: Yes Hx Hypertension: Yes Other/Comment: CAD w/ stent x1 2016 - Pulmonary Hx Respiratory Disorders: Yes Hx Asthma: Yes Hx Chronic Obstructive Pulmonary Disease (COPD): Yes - Neurological Hx Neurological Disorder: No - HEENT Hx HEENT Disorder: Yes Hx Cataracts: Yes - Renal Hx Renal Disorder: Yes Hx Kidney Stones: Yes - Endocrine/Metabolic Hx Endocrine Disorders: Yes Hx Diabetes Mellitus Type 2: Yes - Hematological/Oncological Hx Blood Disorders: No - Integumentary Hx Dermatological Disorder: No - Musculoskeletal/Rheumatological Hx Musculoskeletal Disorders: Yes Hx Arthritis: Yes Hx Falls: No Hx Fractures: Yes (Right foot, nose x3, right leg "many years ago") Other/Comment: HX:chronic ankle problems-ARTHRITIS - Gastrointestinal Hx Gastrointestinal Disorders: No - Genitourinary/Gynecological Hx Genitourinary Disorders: Yes (Frequency/retention) Hx Hematuria: Yes Hx Prostate Problems: Yes (S/P TURP; 3WF c [facility]) Other/Comment: Had 2 surgical procedures 2 yrs ago for hematuria and passing clots pt does no know what kind of procedures they were - Psychiatric Hx Psychophysiologic Disorder: No Hx Substance Use: No - Surgical History Hx Coronary Stent: Yes (x 1) Other/Comment: TURP x1. HX: 07/09/16-CYSTO WITH BILATERAL RETROGRADE PYELOGRAM , RIGHT URETERAL STENT, CYSTOGRAM. HX: 08/22/16-CYSTO RIGHT URETERAL STENT REMOVAL - Anesthesia Hx Anesthesia: Yes Hx Anesthesia Reactions: Yes (BURNING UP ARM TO HEAD BEFORE SEDATED) Hx Malignant Hyperthermia: No Family/Social History - Physician Review Nursing Documentation Reviewed: Yes Family/Social History: Unknown Family HX Smoking Status: Light Smoker < 10 Cigarettes Daily Hx Alcohol Use: No Hx Substance Use: No Allergies/Home Meds Allergies/Adverse Reactions: Allergies garlic Allergy (Severe, Verified 12/06/17 09:39) SWELLING OF FACE AND ITCHINESS onion Allergy (Severe, Verified 12/06/17 09:39) SWELLING OF FACE AND ITCHINESS pepper (genus Capsicum) [pepper] Allergy (Severe, Verified 12/06/17 09:39) SWELLING OF FACE AND ITCHINESS Home Medications: Home Meds Medication Instructions Recorded Confirmed Losartan Potassium 100 mg PO DAILY 12/20/17 12/20/17 MetFORMIN [glucOPHAGE] 1,000 mg PO BID 12/20/17 12/20/17 Metoprolol Succinate XL [Toprol XL] 50 mg PO DAILY 12/20/17 12/20/17 Omeprazole 40 mg PO DAILY 12/20/17 12/20/17 Ondansetron HCl [Zofran] 4 mg PO TID PRN 12/20/17 12/20/17 Review of Systems - Review of Systems Constitutional: absent: Fatigue, Fevers Eyes: absent: Vision Changes ENT: absent: Hearing Changes Respiratory: absent: SOB, Cough Cardiovascular: absent: Chest Pain Gastrointestinal: absent: Abdominal Pain, Nausea, Vomiting Genitourinary Male: Other (urinary retentions) Musculoskeletal: absent: Arthralgias, Back Pain Skin: absent: Rash, Pruritis Neurological: absent: Headache, Dizziness Psychiatric: absent: Anxiety, Depression, Suicidal Ideation Physical Exam Vital Signs Reviewed: Yes Vital Signs Temp Pulse Resp BP Pulse Ox 12/20/17 16:36 95 H 19 100/73 97 12/20/17 15:05 98.3 F 101 H 19 101/70 95 Temperature: Afebrile Blood Pressure: Normal Pulse: Tachycardic Respiratory Rate: Normal Appearance: Positive for: Well-Appearing, Non-Toxic, Comfortable Pain Distress: None Mental Status: Positive for: Alert and Oriented X 3 - Systems Exam Head: Present: Atraumatic, Normocephalic Pupils: Present: PERRL Extroacular Muscles: Present: EOMI Conjunctiva: Present: Normal Mouth: Present: Moist Mucous Membranes Neck: Present: Normal Range of Motion Respiratory/Chest: Present: Clear to Auscultation, Good Air Exchange. No: Respiratory Distress, Accessory Muscle Use Cardiovascular: Present: Regular Rate and Rhythm, Normal S1, S2. No: Murmurs Abdomen: Present: Distention (suprapubic distension). No: Tenderness, Peritoneal Signs, Rebound, Guarding Genitourinary Male: Present: Normal External Genitalia, Circumcised Penis. No: Lesions, Penile Discharge, Testicle Tenderness, Penile Swelling, Masses, Erythema, Hernias, Testicle Swelling Back: Present: Normal Inspection Upper Extremity: Present: Normal Inspection. No: Cyanosis, Edema Lower Extremity: Present: Normal Inspection. No: Edema Neurological: Present: GCS=15, CN II-XII Intact, Speech Normal Skin: Present: Warm, Dry, Normal Color. No: Rashes Psychiatric: Present: Alert, Oriented x 3, Normal Insight, Normal Concentration Medical Decision Making ED Course and Treatment: 12/20/17 15:47 -bladder scanner performed by me show approx. 400cc of urine retained. -18 F Stubbs catheter inserted by me after clean with wipe and betadine, no resistance, sterile procedure, immediately drained approx. 470cc of pinkish color urine, pt. feels immediately relief, total procedure time 15 minutes. -Urinalysis/Flomax ordered -Will page out to Dr. Richards for consult. 12/20/17 16:32 -Urinalysis show +UTI, macrobid ordered -I spoke to Dr. Richards over the phone about this case, discussed about the treatment plan, agreed to discharge home with keep the stubbs catheter inside, will see him on 12/22/2017 for follow up, pt. agreed with the plan of care. -Discharge home with stubbs catheter, macrobid, flomax, follow up with Dr. Richards on this upcoming friday12/22/2017 for follow up, return to the ER for any new or worsening signs or symptoms. - Lab Interpretations Lab Results: Lab Results 12/20/17 16:35: Urine Color Light red, Urine Appearance Slight-cloudy, Urine pH 7.0, Ur Specific [place] 1.025, Urine Protein >=300 H, Urine Glucose (UA) >=1000 , Urine Ketones Trace H, Urine Blood Large H, Urine Nitrate Positive H, Urine Bilirubin Small H, Urine Urobilinogen 0.2, Ur Leukocyte Esterase Trace H, Urine RBC Pending, Urine WBC Pending - Medication Orders Current Medication Orders: Nitrofurantoin Macrocrystals (Macrobid) 100 mg PO STAT STA PRN Reason: Protocol Stop: 12/20/17 16:56 Discontinued Medications Tamsulosin HCl (Flomax) 0.4 mg PO STAT STA Stop: 12/20/17 15:47 - PA / STROBOROMA OPERATOR / Resident Statement MD/DO has reviewed & agrees with the documentation as recorded. Disposition/Present on Arrival - Present on Arrival Any Indicators Present on Arrival: No History of DVT/PE: No History of Uncontrolled Diabetes: No Urinary Catheter: No History of Decub. Ulcer: No History Surgical Site Infection Following: None - Disposition Have Diagnosis and Disposition been Completed?: Yes Diagnosis: Urinary retention, UTI (urinary tract infection) Disposition: HOME/ ROUTINE Disposition Time: 15:54 Patient Plan: Discharge Patient Problems: Current Active Problems Problem Status Onset Urinary retention Acute Condition: IMPROVED Additional Instructions: -Discharge home with stubbs catheter, macrobid, flomax, follow up with Dr. Richards on this upcoming friday12/22/2017 for follow up, return to the ER for any new or worsening signs or symptoms. Prescriptions: Nitrofurantoin Macrocrystals [Macrobid] 100 mg PO BID #14 cap Tamsulosin HCl [Flomax] 0.4 mg PO DAILY #10 cap.er.24h Referrals: Ras Richards MD [Staff Provider] - Follow up with primary Forms: [facility] ([employer]), WORK NOTE
[2017-12-20 16:37] VITALS: BP 100/73
[2017-12-20 16:53] LABS: URINE APPEARANCE SLIGHT-CLOUDY (CLEAR); URINE BILIRUBIN SMALL (NEGATIVE); URINE BLOOD LARGE (NEGATIVE); URINE COLOR LIGHT RED (YELLOW); URINE GLUCOSE (UA) >=1000 mg/dL (NEGATIVE); URINE LEUKOCYTE ESTERASE TRACE Leu/uL (NEGATIVE); URINE PROTEIN >=300 mg/dL (<30 mg/dL); URINE UROBILINOGEN 0.2 E.U./dL (<1 E.U./dL)
[2017-12-20 16:59] LABS: URINE RBC TNTC /hpf (0-2)
[2017-12-20 17:00] LABS: URINE BACTERIA TRACE (NEG)
[2017-12-20 17:52] VITALS: PULSE 96; RESP 18; O2SAT 98
== END 2017-12-20 17:52 | disposition home or self-care (01) ==
LOC: ED 15:02
DX: N39.0 Urinary tract infection, site not specified (principal); R33.9 Retention of urine, unspecified; E11.9 Type 2 diabetes mellitus without complications; E78.00 Pure hypercholesterolemia, unspecified; I10 Essential (primary) hypertension; I25.10 Atherosclerotic heart disease of native coronary artery without angina pectoris; J44.9 Chronic obstructive pulmonary disease, unspecified; F17.210 Nicotine dependence, cigarettes, uncomplicated

== ENCOUNTER 2018-01-13 18:31 | Inpatient (IN) | payer OTHER ==
[2018-01-11 10:02] VITALS: BMI 26.6
[2018-01-13] MEDS: oxyCODONE 5 mg Immediate Release Tab PO PRN (20:05)
[2018-01-13] MEDS: metroNIDAZOLE IV 500 mg in 100 ML IVPB SCH (21:36)
[2018-01-13] MEDS: Insulin Lispro (humaLOG) LOW Coverage SC SCH (21:37)
[2018-01-13] MEDS ORDERED: Ciprofloxacin 400mg/200ml D5W 400 MG/200 ML BAG IVPB SCH (22:00)
[2018-01-13] MEDS ORDERED: MetroNIDAZOLE 500 mg/100 ml IVPB SCH (22:00)
[2018-01-14] MEDS: oxyCODONE 5 mg Immediate Release Tab PO PRN ×3 (03:47→20:00)
[2018-01-14] MEDS: Sodium Chloride 0.9% 1,000 ML IV SCH ×2 (04:05→11:34)
[2018-01-14] MEDS: metroNIDAZOLE IV 500 mg in 100 ML IVPB SCH ×3 (05:55→21:14)
[2018-01-14] MEDS: Pantoprazole 40 mg EC Tab PO SCH (05:56)
[2018-01-14] MEDS: Insulin Lispro (humaLOG) LOW Coverage SC SCH ×4 (06:43→21:20)
[2018-01-14 06:57] LABS: HEMOGLOBIN 10.6 g/dL (14.0-18.0); MEAN CORPUSCULAR HEMOGLOBIN 30.5 pg (25.0-35.0); MEAN CORPUSCULAR HGB CONC 32.4 g/dl (31.0-37.0); MEAN PLATELET VOLUME 10.1 fl (7.0-11.0); RBC 3.48 10^6/uL (3.5-6.1); RED CELL DISTRIBUTION WIDTH 14.3 % (11.5-14.5)
[2018-01-14] MEDS: Arformoterol 15 mcg/2 ml Inh Sol IH SCH ×2 (07:25→21:19)
[2018-01-14] MEDS: Potassium Chloride 20 mEq ER Tab PO SCH (08:36)
[2018-01-14] MEDS: Metoprolol Succinate 50 mg XL Tab PO SCH (08:37)
--- NOTE | 2018-01-14 11:52 | CP.PCM.PN ---
Subjective - Date & Time of Evaluation Date of Evaluation: 01/14/18 Time of Evaluation: 11:00 - Subjective Subjective: Chance Nichole DO, PGY-1 Surgery Progress Note for Dr. Aly Patient was seen and examined this AM with surgery team. He has no new complaints this AM and states his pain is improved. Objective - Vital Signs/Intake and Output Vital Signs (last 24 hours): Temp Pulse Resp BP Pulse Ox 98.3 F 70 20 108/73 01/13/18 19:52 01/14/18 08:37 01/13/18 19:52 01/14/18 08:37 - Medications Medications: Current Medications Acetaminophen (Tylenol 325mg Tab) 650 mg PO Q6H PRN; Protocol PRN Reason: fever, pain (mild) Arformoterol Tartrate (Brovana) 15 mcg IH [id number] ALBERTO PRN Reason: Protocol Last Admin: 01/14/18 07:25 Dose: 15 mcg Atorvastatin Calcium (Lipitor) 20 mg PO DIN ALBERTO PRN Reason: Protocol Glipizide (Glucotrol) 10 mg PO ACB ALBERTO PRN Reason: Protocol Last Admin: 01/14/18 08:00 Dose: 10 mg Hydrochlorothiazide (Microzide) 12.5 mg PO DAILY ALBERTO PRN Reason: Protocol Last Admin: 01/14/18 09:37 Dose: 12.5 mg Sodium Chloride (Sodium Chloride 0.9%) 1,000 mls @ 125 mls/hr IV .Q8H [facility] Last Admin: 01/14/18 11:34 Dose: Not Given Metronidazole (Flagyl) 500 mg in 100 mls @ 100 mls/hr IVPB Q8 ALBERTO Last Admin: 01/14/18 05:55 Dose: 100 mls/hr Insulin Human Lispro (Humalog Low) 0 units SC ACHS ALBERTO PRN Reason: Protocol Last Admin: 01/14/18 11:28 Dose: 1 units Isosorbide Mononitrate (Imdur Er) 30 mg PO 0600 ALBERTO PRN Reason: Protocol Last Admin: 01/14/18 05:55 Dose: 30 mg Metoprolol Succinate (Toprol Xl) 50 mg PO 0800 ALBERTO PRN Reason: Protocol Last Admin: 01/14/18 08:37 Dose: 50 mg Ondansetron HCl (Zofran Tab) 4 mg PO TID PRN; Protocol PRN Reason: Nausea/Vomiting Oxycodone HCl (Oxycodone Immediate Release Tab) 5 mg PO Q6H PRN; Protocol PRN Reason: moderate pain Last Admin: 01/14/18 03:47 Dose: 5 mg Pantoprazole Sodium (Protonix Ec Tab) 40 mg PO 0600 ALBERTO PRN Reason: Protocol Last Admin: 01/14/18 05:56 Dose: 40 mg Potassium Chloride (K-Dur 20 Meq Er Tab) 40 meq PO 0800 ALBERTO PRN Reason: Protocol Last Admin: 01/14/18 08:36 Dose: 40 meq Prednisone (Prednisone Tab) 10 mg PO 0800 ALBERTO PRN Reason: Protocol Last Admin: 01/14/18 08:36 Dose: 10 mg Tamsulosin HCl (Flomax) 0.4 mg PO DAILY ALBERTO PRN Reason: Protocol Last Admin: 01/14/18 09:38 Dose: 0.4 mg - Labs Labs: 01/14/18 06:30 - Constitutional Appears: Non-toxic, No Acute Distress - Head Exam Head Exam: ATRAUMATIC, NORMAL INSPECTION - Eye Exam Eye Exam: Normal appearance - ENT Exam ENT Exam: Mucous Membranes Moist - Neck Exam Neck Exam: Full ROM, Normal Inspection - Respiratory Exam Respiratory Exam: absent: Accessory Muscle Use, Respiratory Distress - Cardiovascular Exam Cardiovascular Exam: +S1, +S2 - GI/Abdominal Exam GI & Abdominal Exam: Soft. absent: Guarding, Tenderness, Rebound - Extremities Exam Extremities Exam: Normal Inspection - Neurological Exam Neurological Exam: Alert, Awake, Oriented x3 - Psychiatric Exam Psychiatric exam: Normal Affect, Normal Mood - Skin Skin Exam: Dry, Intact, Normal Color, Warm Assessment and Plan - Assessment and Plan (Free Text) Assessment: 67 yo M with resolving uncomplicated diverticulitis of the sigmoid/descending colon. Plan: -Has been tolerating modified GI diet well without n/v -Continue IVF -Continue IV abx -PRN pain medication -Encourage continued regular ambulation and IS use -Patient would benefit from surgical resection in the future as this is a recurrent problem Case and plan discussed with Dr. Jermain Nichole DO IM Resident PGY-1
[2018-01-15] MEDS: metroNIDAZOLE IV 500 mg in 100 ML IVPB SCH ×3 (05:07→21:05)
[2018-01-15] MEDS: Pantoprazole 40 mg EC Tab PO SCH (05:08)
[2018-01-15] MEDS: Insulin Lispro (humaLOG) LOW Coverage SC SCH ×4 (06:56→22:11)
[2018-01-15] MEDS: oxyCODONE 5 mg Immediate Release Tab PO PRN ×2 (07:01→21:11)
[2018-01-15] MEDS: Arformoterol 15 mcg/2 ml Inh Sol IH SCH ×2 (07:03→20:06)
[2018-01-15] MEDS: Potassium Chloride 20 mEq ER Tab PO SCH (08:34)
[2018-01-15] MEDS: Metoprolol Succinate 50 mg XL Tab PO SCH (08:35)
--- NOTE | 2018-01-15 11:57 | HP ---
DATE OF EXAM: 01/14/2018 The patient was seen and examined on the bedside on 01/14/2018. CHIEF COMPLAINT: Abdominal pain. HISTORY OF PRESENT ILLNESS: Mr. Don King, 67-year-old male with multiple medical problems, has third admission for diverticulitis, has history of COPD, BPH. Came in to [facility] emergency room on 01/11/2018, got admitted. Seen by Surgery and GI. Started on Antibiotics. Feeling better. History of BPH and multiple urological surgeries. As per GI, the patient needs 10 days IV antibiotics because of failure of treatment. First time, he signed against medical advice. Second time, he was discharged with p.o. antibiotics, but still having diverticulitis. Now, we transferred the patient to TCU for the completion of antibiotics. PAST MEDICAL HISTORY: Hypertension, COPD, cataract, kidney stones, diabetes mellitus type 2, nose fracture, right leg fracture many years ago, prostate problem, history of pneumaturia. FAMILY HISTORY: Father and mother, noncontributory. HABITS: Never smoked. No drugs. No ethanol. ALLERGIES: THE PATIENT IS ALLERGIC WITH ONION AND PEPPER. HOME MEDICATIONS: Losartan, metformin, metoprolol, omeprazole, Zofran. REVIEW OF SYSTEMS: The patient was seen and examined on the bedside, looking comfortable. No nausea, vomiting, diarrhea. No hematuria or hematochezia. No swelling of the leg. No chest pain. No palpitation. No headache. No dizziness. Abdominal pain is better. PHYSICAL EXAMINATION: VITAL SIGNS: Temperature 98.6, pulse 70, blood pressure 130/90, respiratory rate 20. HEENT: Head normocephalic, atraumatic. Eyes PERRLA. Extraocular muscles intact. Conjunctivae clear. Nose patent. Mucous membrane moist. NECK: Supple. No carotid bruit. No JVD or thyromegaly. CHEST: Bilaterally symmetrical. HEART: S1 and S2 positive. LUNGS: Clear to auscultation. ABDOMEN: Soft. Bowel sounds positive. No organomegaly. EXTREMITIES: No edema. No cyanosis. NEUROLOGICAL: The patient is awake and alert. Moving all 4 extremities. No focal deficits. LABORATORY DATA: White blood cell is 8.9, hemoglobin 11.8, hematocrit 36.3, platelets 250. Sodium 141, potassium 3.9, BUN 8, creatinine 0.9, glucose noted . ASSESSMENT AND PLAN: Mr. Don King, 67-year-old male with anemia, hyperglycemia, history of hypertension, chronic obstructive pulmonary disease, kidney disease, stones, diabetes mellitus type 2, nose fracture, right leg fracture, prostate problem, history of hematuria, status post cystoscopy. Came with abdominal pain in [facility] Failed outpatient treatment. Admitted to [facility] for IV antibiotics. Seen by GI and Surgery. According to Surgery, we have to complete the antibiotics. The patient improve, then needs surgery. GI suggested 10 days of IV antibiotics, ciprofloxacin and metronidazole. Continue present treatment. Physical therapy. Transferred the patient to Transitional Care Unit for the completion of antibiotics. We will continue treatment there. Grace Méndez MD MTDD
[2018-01-15] MEDS: Nystatin 100,000 Units/gm Topical Pow(15 gm) TOP SCH ×2 (17:16→17:22)
--- NOTE | 2018-01-16 04:03 | PN ---
DATE: 01/15/2018 SUBJECTIVE: Patient is a 67-year-old male. Patient was seen and examined on the bedside on 01/15/2018. No fever. No chills. No nausea, vomiting, or diarrhea. No hematuria or hematochezia. No swelling of the legs. No chest pain. No palpitation. PHYSICAL EXAMINATION: VITAL SIGNS: Temperature 99.3, pulse 84, blood pressure 120/80 , respiratory rate 20. HEENT: Head: Normocephalic, atraumatic. Eyes: PERRLA. Extraocular muscles intact. Conjunctivae clear. Nose patent. NECK: Supple. No carotid bruit. No JVD. No thyromegaly. CHEST: Bilaterally symmetrical. HEART: S1 and S2 positive. LUNGS: Clear to auscultation. ABDOMEN: Soft. Bowel sounds positive. No organomegaly. Tenderness in the left lower quadrant is better. LABORATORY DATA: White blood cells 9, hemoglobin 10.6, hematocrit 32.7. platelets 231. Glucose 261, 346, 248. ASSESSMENT AND PLAN: Mr. Don King is a 67-year-old male with insulin-dependent diabetes mellitus, anemia, history of benign prostatic hypertrophy, has three admissions for diverticulitis. Getting antibiotics. Gastrointestinal and surgical team was on the case. We have to complete 10 days of intravenous antibiotics after that the surgical team will decide about surgery. Patient has diverticulitis of the sigmoid descending colon. Has been tolerating food very well without nausea or vomiting. Continue intravenous fluid, antibiotics, p.r.n. pain medications. Continue regular ambulation. Physical therapy. Repeat labs. We will follow up. Grace Méndez MD SOFIA
[2018-01-16] MEDS: metroNIDAZOLE IV 500 mg in 100 ML IVPB SCH ×3 (05:20→22:01)
[2018-01-16] MEDS: Pantoprazole 40 mg EC Tab PO SCH (05:20)
[2018-01-16 06:41] LABS: PH,URINE 6.5 (4.7-8.0); URINE BILIRUBIN NEGATIVE (NEGATIVE); URINE BLOOD MODERATE (NEGATIVE); URINE GLUCOSE (UA) 100 mg/dL (NEGATIVE); URINE LEUKOCYTE ESTERASE MODERATE Leu/uL (NEGATIVE); URINE PROTEIN TRACE mg/dL (<30 mg/dL); URINE UROBILINOGEN 0.2 E.U./dL (<1 E.U./dL)
[2018-01-16] MEDS: Insulin Lispro (humaLOG) LOW Coverage SC SCH ×4 (06:55→22:02)
[2018-01-16 06:58] LABS: URINE APPEARANCE CLEAR (CLEAR); URINE COLOR YELLOW (YELLOW)
[2018-01-16] MEDS: Arformoterol 15 mcg/2 ml Inh Sol IH SCH ×2 (07:20→19:49)
[2018-01-16 07:40] LABS: URINE BACTERIA MOD (NEG); URINE EPITHELIAL CELLS 0 - 2 /hpf (0-5); URINE WBC 25 - 30 /hpf (0-6)
[2018-01-16] MEDS: Potassium Chloride 20 mEq ER Tab PO SCH (07:48)
[2018-01-16] MEDS: Metoprolol Succinate 50 mg XL Tab PO SCH (07:50)
[2018-01-16] MEDS: Nystatin 100,000 Units/gm Topical Pow(15 gm) TOP SCH ×2 (10:04→17:36)
[2018-01-16] MEDS: oxyCODONE 5 mg Immediate Release Tab PO PRN ×2 (13:04→22:25)
--- NOTE | 2018-01-17 02:45 | PN ---
DATE: 01/16/2018 SUBJECTIVE: The patient is a 67-year-old male. Patient is looking comfortable. Abdominal pain is getting better. Did bowel movement. Did physical therapy, IV antibiotics. Appetite is appropriate. PHYSICAL EXAMINATION: VITAL SIGNS: Temperature 98.4, pulse 87, blood pressure 98/70, respiratory rate 18. HEENT: Head: Normocephalic, atraumatic. Eyes: PERRLA. Extraocular muscles intact. Conjunctivae clear. Nose patent. NECK: Supple. No carotid bruit, JVD or thyromegaly. CHEST: Bilaterally symmetrical. HEART: S1 and S2 positive. LUNGS: Clear to auscultation. ABDOMEN: Soft. Bowel sounds present. No organomegaly. Tender in the lower quadrant especially left one. EXTREMITIES: No edema. No cyanosis. NEUROLOGICAL: Patient is awake and alert. Moving all 4 extremities. No focal deficits. MEDICATIONS: Brovana, Flagyl, Flomax, Glucotrol, insulin, Imdur, K-Dur, atorvastatin, hydrochlorothiazide, nystatin, oxycodone. LABORATORY DATA: White blood cell is 9, hemoglobin is 10.6, hematocrit noted , platelets 231. Glucose 253, 163, 247, 346. ASSESSMENT AND PLAN: Mr. Don King is a 67-year-old male with multiple medical problems, had insulin-dependent diabetes mellitus, anemia, history of benign prostatic hyperplasia, status post procedure by Dr. Richards, diverticulitis. Getting antibiotics. GI and Surgery is on the case. Getting physical therapy. Abdominal pain is getting better. No nausea or vomiting. We will repeat labs. We will follow up. Grace Méndez MD SOFIA
[2018-01-17] MEDS: metroNIDAZOLE IV 500 mg in 100 ML IVPB SCH ×3 (05:23→21:15)
[2018-01-17] MEDS: oxyCODONE 5 mg Immediate Release Tab PO PRN ×3 (05:35→23:48)
[2018-01-17] MEDS: Pantoprazole 40 mg EC Tab PO SCH (05:35)
[2018-01-17] MEDS: Insulin Lispro (humaLOG) LOW Coverage SC SCH ×4 (07:17→22:31)
[2018-01-17] MEDS: Arformoterol 15 mcg/2 ml Inh Sol IH SCH ×2 (07:24→20:44)
[2018-01-17 08:13] LABS: HEMOGLOBIN 11.6 g/dL (14.0-18.0); MEAN CELL VOLUME 94.2 fl (80.0-105.0); MEAN CORPUSCULAR HEMOGLOBIN 30.4 pg (25.0-35.0); MEAN CORPUSCULAR HGB CONC 32.2 g/dl (31.0-37.0); MEAN PLATELET VOLUME 10.3 fl (7.0-11.0); RBC 3.82 10^6/uL (3.5-6.1); RED CELL DISTRIBUTION WIDTH 14.8 % (11.5-14.5); WHITE BLOOD COUNT 11.7 10^3/ul (4.5-11.0)
[2018-01-17 08:52] LABS: ALB/GLOB RATIO 1.2 (1.1-1.8); ALBUMIN 3.5 g/dL (3.0-4.8); ALT/SGPT 26 U/L (7-56); AST/SGOT 18 U/L (17-59); BLOOD UREA NITROGEN 18 mg/dL (7-21); CALCIUM 8.7 mg/dL (8.4-10.5); GFR NON-AFRICAN AMERICAN > 60
[2018-01-17] MEDS: Potassium Chloride 20 mEq ER Tab PO SCH (11:50)
[2018-01-17] MEDS: Nystatin 100,000 Units/gm Topical Pow(15 gm) TOP SCH ×2 (11:51→17:22)
[2018-01-17] MEDS: Metoprolol Succinate 50 mg XL Tab PO SCH (11:52)
[2018-01-18] MEDS: Pantoprazole 40 mg EC Tab PO SCH (05:28)
[2018-01-18] MEDS: metroNIDAZOLE IV 500 mg in 100 ML IVPB SCH ×3 (05:28→21:13)
[2018-01-18] MEDS: Insulin Lispro (humaLOG) LOW Coverage SC SCH ×4 (07:19→22:14)
[2018-01-18] MEDS: Arformoterol 15 mcg/2 ml Inh Sol IH SCH ×2 (07:34→20:50)
[2018-01-18] MEDS: Metoprolol Succinate 50 mg XL Tab PO SCH (08:41)
[2018-01-18] MEDS: Potassium Chloride 20 mEq ER Tab PO SCH (08:42)
[2018-01-18] MEDS: oxyCODONE 5 mg Immediate Release Tab PO PRN (10:51)
[2018-01-18] MEDS: Nystatin 100,000 Units/gm Topical Pow(15 gm) TOP SCH ×2 (11:00→17:50)
[2018-01-18] MEDS: Promethazine 6.25 MG/5 ML CUP PO PRN (19:36)
[2018-01-19] MEDS: oxyCODONE 5 mg Immediate Release Tab PO PRN ×4 (00:22→23:54)
[2018-01-19] MEDS: Pantoprazole 40 mg EC Tab PO SCH (05:39)
[2018-01-19] MEDS ORDERED: metroNIDAZOLE IV 500 mg/100 ml 500 MG/100 ML BAG IVPB ONE (06:00)
[2018-01-19] MEDS: Insulin Lispro (humaLOG) LOW Coverage SC SCH ×4 (07:06→22:04)
[2018-01-19 07:12] LABS: HEMOGLOBIN 10.9 g/dL (14.0-18.0); MEAN CELL VOLUME 93.1 fl (80.0-105.0); MEAN CORPUSCULAR HEMOGLOBIN 30.2 pg (25.0-35.0); MEAN CORPUSCULAR HGB CONC 32.4 g/dl (31.0-37.0); MEAN PLATELET VOLUME 10.1 fl (7.0-11.0); RBC 3.61 10^6/uL (3.5-6.1); RED CELL DISTRIBUTION WIDTH 14.6 % (11.5-14.5)
[2018-01-19] MEDS: Arformoterol 15 mcg/2 ml Inh Sol IH SCH ×2 (07:13→19:58)
[2018-01-19 07:48] LABS: BLOOD UREA NITROGEN 20 mg/dL (7-21); CALCIUM 8.8 mg/dL (8.4-10.5); GFR NON-AFRICAN AMERICAN > 60
[2018-01-19] MEDS: Metoprolol Succinate 50 mg XL Tab PO SCH (08:12)
[2018-01-19] MEDS: Potassium Chloride 20 mEq ER Tab PO SCH (08:12)
[2018-01-19] MEDS: Promethazine 6.25 MG/5 ML CUP PO PRN ×3 (08:14→22:14)
--- NOTE | 2018-01-19 08:51 | PN ---
DATE: 01/18/2018 SUBJECTIVE: Patient is a 68-year-old male. Patient was seen and examined on the bedside on 01/18/2018, was complaining about coughing. No nausea or vomiting. No chest pain. No palpitation. Still having abdominal pain. No swelling of the leg. No fever. No chills. PHYSICAL EXAMINATION: VITAL SIGNS: Temperature 97.8, pulse 91, blood pressure 98/71, respiratory rate 20. HEENT: Head: Normocephalic and atraumatic. Eyes: PERRLA. Extraocular muscles intact. Conjunctivae clear. Nose patent. Mucous membrane moist. NECK: Supple. No carotid bruit, JVD, or thyromegaly. CHEST: Bilaterally symmetrical. HEART: S1 and S2 positive. LUNGS: Clear to auscultation. ABDOMEN: Soft. Bowel sounds present. No organomegaly. EXTREMITIES: No edema. No cyanosis. NEUROLOGIC: Patient is awake and alert. Follows simple command. MEDICATIONS: Brovana, Flagyl, Flomax, Glucotrol, insulin, Imdur, K-Dur, Lipitor, hydrochlorothiazide, nystatin powder, oxycodone, Phenergan, prednisone, Protonix, Toprol. LABORATORY DATA: We do not have recent lab today, but repeated old labs. ASSESSMENT AND PLAN: Mr. Don King is a 68-year-old male with leukocytosis; anemia; hyperglycemia; has diverticulitis, had 3 admissions for diverticulitis, getting intravenous antibiotics; has insulin-dependent diabetes mellitus; history of benign prostatic hyperplasia, status post procedure by Dr. Domo Richards. Today, he was complaining about coughing, Phenergan syrup without codeine is given. Abdominal pain is getting better. Patient was seen by GI and Surgery. Plan is to continue present treatment. Repeat labs. Grace Méndez MD MTDD
[2018-01-19] MEDS: Nystatin 100,000 Units/gm Topical Pow(15 gm) TOP SCH ×3 (09:58→18:00)
[2018-01-19] MEDS: metroNIDAZOLE IV 500 mg/100 ml 500 MG/100 ML BAG IVPB SCH ×2 (14:09→22:03)
--- NOTE | 2018-01-19 19:51 | CON ---
DATE: 01/19/2018 PULMONARY CONSULTATION REFERRING PHYSICIAN: Grace Méndez MD REASON FOR CONSULTATION: Cough, shortness of breath, chronic lung disease. HISTORY OF PRESENT ILLNESS: This is a 67-year-old gentleman with past medical history significant for chronic obstructive lung disease, hypertension, renal stone, diabetes, BPH, admitted with diverticulitis, seen by Surgery and GI on antibiotics. Still have a left lower quadrant pain. For the last day or so, he has been having some cough, wheezing, shortness of breath. No hemoptysis. No emesis. No hematuria. No leg swelling reported. PAST MEDICAL HISTORY: As per history of present illness. ALLERGIES: NO MEDICATION ALLERGIES NOTED. HE HAS FOOD ALLERGY ONION AND PEPPER. SOCIAL HISTORY: No active smoking. Denying any alcohol use. FAMILY HISTORY: No significant cardiopulmonary disease reported. MEDICATIONS: He is on Brovana inhaled twice a day, Flagyl 500 mg daily, Flomax 0.4 mg daily, glipizide 10 mg before breakfast, insulin coverage, Imdur ER 30 mg daily, potassium 40 mEq daily, atorvastatin 20 mg daily, hydrochlorothiazide 12.5 mg daily, nystatin powder twice a day, oxycodone immediate release 5 mg every 6 hours p.r.n., Phenergan 6.25 mg three times a day, prednisone 10 mg daily, Protonix 40 mg daily, Toprol-XL 50 mg daily, Tylenol p.r.n., Zofran p.r.n. REVIEW OF SYSTEMS: No headache, no rhinitis. Has cough, shortness of breath, wheezing. No nausea. Does have abdominal pain. No dysuria. No leg pain or leg swelling. PHYSICAL EXAMINATION: GENERAL: In no acute distress. VITAL SIGNS: Temperature is 98, heart rate is 90, respiratory rate is 20, blood pressure 114/83, pulse ox 97% on room air. HEENT: Moist mucous membranes. Crowded airway. NECK: Supple. No JVD. LUNGS: Have bilateral expiratory wheezing. HEART: S1 and S2. ABDOMEN: Soft. Has a left lower quadrant tenderness. EXTREMITIES: There is no edema. NEUROLOGICAL: Awake and alert. Follows simple command. LABORATORY DATA: Shows hemoglobin 10.9, hematocrit 33.6, WBC 10, platelet is 244. Sodium 138, potassium 2.6, chloride 104, bicarbonate 28, BUN 20, creatinine 1, glucose 217, calcium 8.8. Urinalysis shows wbc 20-30, rbc 10-15. IMPRESSION AND PLAN: Diverticulitis on antibiotics, chronic obstructive lung disease with exacerbation, anemia, history of benign prostatic hypertrophy, diabetes. Agree with the present management. We will increase prednisone to 40 mg for a day or so. Continue inhaled bronchodilator. We will get chest x-ray to assure there is no pneumonia. We will get BNP and procalcitonin in the morning, sleep apnea precaution. Careful with sedation. Recommend PFT and attended sleep study upon discharge as outpatient. Thank you and we will follow with you. Isaias Parra MD
--- NOTE | 2018-01-20 03:23 | PN ---
DATE: 01/19/2018 SUBJECTIVE: The patient is a 67-year-old male. The patient was seen and examined on the bedside on 01/19/2018, looking comfortable. The patient is coughing, shortness of breath. No fever, no chills. No headache, no dizziness. No chest pain, no palpitation. Does have abdominal pain. dysuria. No swelling of the leg. PHYSICAL EXAMINATION VITAL SIGNS: Temperature 98, heart rate 90, respiratory rate 20, blood pressure 114/83, pulse oximetry 97% on room air. HEENT: Head: Normocephalic and atraumatic. Eyes: PERRLA. Extraocular muscles intact. Conjunctivae clear. Nose patent. NECK: Supple. No carotid bruit. No JVD, or thyromegaly. CHEST: Bilaterally symmetrical. HEART: S1 and S2 positive. LUNGS: Clear to auscultation. ABDOMEN: Soft. Tender in the left lower quadrant. EXTREMITIES: No edema. No cyanosis. NEUROLOGIC: The patient is awake and alert. Follows simple commands. LABORATORY DATA: White blood cell 10, hemoglobin 10.9, hematocrit 33.6, platelets 244. Sodium 138, potassium 2.6, BUN 20, creatinine 1, glucose 217. MEDICATIONS: Brovana, Flagyl, Flomax, glipizide, insulin coverage, potassium, atorvastatin, hydrochlorothiazide, nystatin powder, oxycodone, Phenergan, prednisone, Protonix, Toprol, Tylenol, Zofran. ASSESSMENT: Mr. Don King is a 67-year-old male with diverticulitis, on antibiotics, chronic obstructive lung disease with exacerbation, anemia, history of benign prostatic hyperplasia, diabetes mellitus. PLAN: Continue antibiotics. Dr. Parra increased the prednisone. Inhaled bronchodilators. He ordered some testing. Sleep apnea precautions. GI and DVT prophylaxes. Repeat labs. Get PFTs. We will follow up. Grace Méndez MD
[2018-01-20] MEDS: metroNIDAZOLE IV 500 mg/100 ml 500 MG/100 ML BAG IVPB SCH (05:31)
[2018-01-20] MEDS: Pantoprazole 40 mg EC Tab PO SCH (05:33)
[2018-01-20] MEDS: Insulin Lispro (humaLOG) LOW Coverage SC SCH ×4 (06:56→21:25)
[2018-01-20] MEDS: oxyCODONE 5 mg Immediate Release Tab PO PRN ×3 (06:57→21:27)
[2018-01-20] MEDS: Arformoterol 15 mcg/2 ml Inh Sol IH SCH ×2 (07:05→20:25)
[2018-01-20 07:12] LABS: B-TYPE NATRIURETIC PEPTIDE 36.3 pg/mL (0-450)
[2018-01-20 07:19] LABS: ALB/GLOB RATIO 1.1 (1.1-1.8); ALBUMIN 3.5 g/dL (3.0-4.8); ALT/SGPT 25 U/L (7-56); AST/SGOT 16 U/L (17-59); BLOOD UREA NITROGEN 18 mg/dL (7-21); CALCIUM 9.1 mg/dL (8.4-10.5); GFR NON-AFRICAN AMERICAN > 60
[2018-01-20] MEDS: Potassium Chloride 20 mEq ER Tab PO SCH (08:22)
[2018-01-20] MEDS: Metoprolol Succinate 50 mg XL Tab PO SCH (08:58)
--- NOTE | 2018-01-20 09:29 | RAD ---
Date of service: 01/19/2018 HISTORY: copd COMPARISON: 11/06/2017 TECHNIQUE: Chest PA and lateral FINDINGS: LUNGS: No active pulmonary disease. PLEURA: No significant pleural effusion identified. No pneumothorax apparent. CARDIOVASCULAR: Mild cardiomegaly. Moderate aortic tortuosity OSSEOUS STRUCTURES: No significant abnormalities. VISUALIZED UPPER ABDOMEN: Normal. OTHER FINDINGS: None. IMPRESSION: No active disease.
[2018-01-20] MEDS: Nystatin 100,000 Units/gm Topical Pow(15 gm) TOP SCH ×2 (10:29→16:42)
[2018-01-20] MEDS: Promethazine 6.25 MG/5 ML CUP PO PRN ×2 (10:59→21:27)
[2018-01-20 13:08] VITALS: TEMP 98.1
[2018-01-20 16:34] VITALS: RESP 18; O2SAT 98
--- NOTE | 2018-01-20 22:20 | PN ---
DATE: 01/20/2018 PULMONARY PROGRESS NOTE REFERRING PHYSICIAN: Dr. Méndez SUBJECTIVE: The patient is lying in the bed, head at 45 degrees. Night was unremarkable. Feels better, still has wheezing and cough, shortness of breath. No nausea, no vomiting. Still has a left lower quadrant pain. No leg pain or leg swelling. OBJECTIVE: GENERAL: In no acute distress. VITAL SIGNS: Temperature is 98, heart rate is 96, respiratory rate is 18, blood pressure 100/73, pulse ox 98% on room air. HEENT: Moist mucous membrane. Crowded airway. NECK: Supple. No JVD. LUNGS: Have prolonged expiratory phase with some wheezing. HEART: S1 and S2. ABDOMEN: Soft, nontender. Has a left lower quadrant tenderness. EXTREMITIES: There is no edema. NEUROLOGIC: Awake and alert, follows simple command. MEDICATIONS: He is on Brovana inhaled twice a day, metronidazole 500 mg every 8 hours, Flomax 0.4 mg daily, Glucotrol 10 mg before breakfast, insulin coverage, Imdur ER 30 mg daily, potassium 40 mEq daily, Lipitor 20 mg daily, hydrochlorothiazide 12.5 mg daily, nystatin 1 g twice a day, oxycodone immediate release 5 mg every 6 hours p.r.n., promethazine 6.25 mg three times a day, prednisone 40 mg daily, Protonix 40 mg daily, Toprol XL 50 mg daily, Tylenol p.r.n., Zofran p.r.n. LABORATORY DATA: Reviewed. Sodium 140, potassium 3.6, chloride 103, bicarbonate 30, BUN 18, creatinine 1, glucose 164, calcium 9.1, AST 16, ALT 25, alk phos is 66. Albumin 3.5, procalcitonin less than 0.05. Chest x-ray done yesterday shows no infiltrate or effusion. IMPRESSION AND PLAN: Diverticulitis, on antibiotics; chronic obstructive lung disease with exacerbation; anemia; benign prostatic hypertrophy; hypertension; diabetes; may have sleep apnea syndrome. Pulmonary point of view, little improved on prednisone 40 mg with antibiotics. Inhaled bronchodilator. Gastric and deep venous thrombosis prophylaxis. Continue therapy. GI and Surgical followup. Thank you and we will follow with you. Isaias Parra MD [facility] # [phone]
--- NOTE | 2018-01-21 00:37 | PN ---
DATE: 01/20/2018 SUBJECTIVE: The patient was seen and examined on the bedside on 01/20/2018. Looking comfortable. Abdominal pain is getting better. Sugar is high because the patient is using the steroid. Still wheezing and coughing. Shortness of breath. No fever. No chills. No nausea, vomiting, or diarrhea. No headache. No dizziness. PHYSICAL EXAMINATION: VITAL SIGNS: Temperature 98, heart rate 96, respiratory rate 18, blood pressure 100/73, pulse oximetry 98% on room air. HEENT: Head normocephalic, atraumatic. Eyes; PERRLA. Extraocular muscles intact. Conjunctivae clear. Nose patent. Mucous membrane moist. NECK: Supple. No carotid bruit. No JVD or thyromegaly. CHEST: Bilaterally symmetrical. HEART: S1 and S2 positive. LUNGS: Clear to auscultation. ABDOMEN: Soft. Bowel sounds positive. No organomegaly. EXTREMITIES: No edema. No cyanosis. NEUROLOGICAL: The patient is awake and alert. Moving all 4 extremities. No focal deficits. MEDICATIONS: Brovana, metronidazole, Flomax, Glucotrol, potassium, hydrochlorothiazide, nystatin, oxycodone, Protonix, prednisone, Tylenol, Zofran. LABORATORY DATA: Sodium 140, potassium 3.6, BUN 18, creatinine 1, glucose 164, AST 16, ALT 25, procalcitonin less than 0.05. ASSESSMENT AND PLAN: Mr. Don King, 68-year-old male with diverticulitis, repeatedly has third admission with diverticulitis, on antibiotics, getting better. Chronic obstructive lung disease exacerbation; anemia; benign prostatic hypertrophy; hypertension; diabetes mellitus, sugar is high, getting sliding scale; sleep apnea syndrome, getting tapering dose of prednisone, inhaled bronchodilators. Gastric and deep venous thrombosis prophylaxes. Continue therapy. The patient has followup with GI and Surgery. Length of time discussion done with the patient about treatment plan and he want to discuss this situation with, Dalia, his mother, phone number [phone]; daughter is Vandana, her number is [phone]. When the patient will go home, according to him, he will not have phone number, then for followup, if some emergency, we are supposed to call his mother, Dalia and daughter, Vandana. A discussion done, treatment plan made. Getting physical therapy. We will follow up. Grace Méndez MD
[2018-01-21] MEDS: Pantoprazole 40 mg EC Tab PO SCH (05:23)
[2018-01-21] MEDS: oxyCODONE 5 mg Immediate Release Tab PO PRN (05:27)
[2018-01-21] MEDS: Insulin Lispro (humaLOG) LOW Coverage SC SCH ×2 (07:00→12:30)
[2018-01-21] MEDS: Arformoterol 15 mcg/2 ml Inh Sol IH SCH (07:06)
[2018-01-21] MEDS: Potassium Chloride 20 mEq ER Tab PO SCH (08:00)
[2018-01-21] MEDS: Metoprolol Succinate 50 mg XL Tab PO SCH (08:00)
[2018-01-21] MEDS: Nystatin 100,000 Units/gm Topical Pow(15 gm) TOP SCH (10:09)
[2018-01-21 10:11] VITALS: BP 106/74; PULSE 96
--- NOTE | 2018-01-21 13:57 | PN ---
DATE: 01/21/2018 PULMONARY PROGRESS NOTE REFERRING PHYSICIAN: Grace Méndez MD. SUBJECTIVE: He is sitting on side of the bed. Night was unremarkable. Feels a little better. Decreased cough. No nausea. No vomiting. No diarrhea. No leg pain or leg swelling. OBJECTIVE: GENERAL: In no acute distress. VITAL SIGNS: Temperature is 98, heart rate is 96, respiratory rate is 18, blood pressure 106/74, pulse of 98% on room air. HEENT: Moist mucous membrane. Crowded airway. Mallampati score is 4. NECK: Supple. No JVD. LUNGS: Have a prolonged expiratory phase. Few wheezing. HEART: S1 and S2. ABDOMEN: Soft, nontender. No organomegaly. EXTREMITIES: No edema. NEUROLOGICAL: Awake and alert. Follows simple command. MEDICATIONS: He is on Brovana inhaled twice a day, Flomax 0.4 mg daily, glipizide 10 mg before meals, insulin coverage, Imdur 30 mg daily, potassium supplement, Lipitor 20 mg daily, hydrochlorothiazide 12.5 mg daily, nystatin powder topically at affected area, promethazine 6.25 mg three times a day, oxycodone immediate release 5 mg every 6 hours p.r.n., prednisone 40 mg daily, Protonix 40 mg daily, Toprol-XL 50 mg daily, Tylenol p.r.n., Zofran p.r.n. LABORATORY DATA: Reviewed. Blood sugar this morning was 305. IMPRESSION AND PLAN: Diverticulitis, on antibiotics, seen by GI and Surgery; chronic obstructive lung disease with exacerbation; anemia; benign prostatic hypertrophy; hypertension; diabetes; may have sleep apnea syndrome. The patient is being discharged home, will be seen by Dr. Méndez at her office in 2 days. Will need followup PFT and attended sleep study. Has snoring, daytime sleepy and tired. The patient expressed understanding and will call back to make appointment. Thank you and we will follow. Isaias Parra MD
== END 2018-01-21 14:36 | disposition home health service (06) | DRG 392 ==
LOC: TRCU 18:31
PROVIDERS: ADMIT Internal Medicine; ATTEND Internal Medicine
PROC: F07Z9FZ Gait Training/Functional Ambulation Treatment using Assistive, Adaptive, Supportive or Protective Equipment (ICD-10-PCS; principal; 2018-01-14)
PROC: F07M6ZZ Therapeutic Exercise Treatment of Musculoskeletal System - Whole Body (ICD-10-PCS; 2018-01-14)
DX: K57.32 Diverticulitis of large intestine without perforation or abscess without bleeding (principal); J44.1 Chronic obstructive pulmonary disease with (acute) exacerbation; D64.9 Anemia, unspecified; D72.829 Elevated white blood cell count, unspecified; E11.9 Type 2 diabetes mellitus without complications; G47.30 Sleep apnea, unspecified; I10 Essential (primary) hypertension; N40.0 Benign prostatic hyperplasia without lower urinary tract symptoms; Z79.4 Long term (current) use of insulin; Z87.442 Personal history of urinary calculi

== ENCOUNTER 2018-05-08 06:41 | Emergency (ER) | payer MEDICARE, OTHER ==
[2018-05-08 06:41] VITALS: BMI 25.8
[2018-05-08 06:50] VITALS: RESP 18; TEMP 98.5; O2SAT 97
--- NOTE | 2018-05-08 07:07 | ED PDOC ---
Arrival/HPI - General Historian: Patient - History of Present Illness Narrative History of Present Illness (Text): 05/08/18 07:26 68 y/o M with PMHx of diverticulitis, asthma, DM2, HLD, HTN, ?prostate adenocarcinoma presents to ED with complaints of sharp, diffuse, non-radiating 10/10 abdominal pain with associated nausea and chills that has started about 3 hours ago, not alleviated or aggravated by anything in particular. Pt also reports he had drank about 3 shots of vodka about 6 hours ago when. Patient reports he takes percocet regularly at home for pain control. He denies fevers, headache, dizziness, numbness, tingling, one-sided weakness, slurred speech, vision changes, chest pain, palpitations, shortness of breath, vomiting, constipation, diarrhea. PMD/Cardiology: Dr. Margie Joshua ([place]) Urologist: Dr. Ras Richards Surgery: Dr. Dick Time/Duration: Prior to Arrival Symptom Onset: Gradual Quality: Stabbing Severity Level: 10 <Toni Lentz - Last Filed: 05/08/18 12:47> <Don Schmitt DO - Last Filed: 05/08/18 17:14> - General Chief Complaint: Abdominal Pain Past Medical History - Provider Review Nursing Documentation Reviewed: Yes - Infectious Disease Hx of Infectious Diseases: None - Cardiac Hx Cardiac Disorders: Yes Hx Hypertension: Yes - Pulmonary Hx Respiratory Disorders: Yes Hx Asthma: Yes Hx Chronic Obstructive Pulmonary Disease (COPD): Yes (+home O2) - Neurological Hx Neurological Disorder: No - HEENT Hx HEENT Disorder: Yes Hx Cataracts: Yes - Endocrine/Metabolic Hx Endocrine Disorders: Yes Hx Diabetes Mellitus Type 2: Yes - Hematological/Oncological Hx Blood Disorders: No - Integumentary Hx Dermatological Disorder: No - Musculoskeletal/Rheumatological Hx Musculoskeletal Disorders: Yes Hx Arthritis: Yes Hx Fractures: Yes (Right foot, nose x3, right leg "many years ago") - Gastrointestinal Hx Gastrointestinal Disorders: No - Genitourinary/Gynecological Hx Genitourinary Disorders: Yes (Frequency/retention) Hx Prostate Problems: Yes Other/Comment: prostate sx - Psychiatric Hx Psychophysiologic Disorder: No Hx Substance Use: No - Surgical History Hx Coronary Stent: Yes (x 1) - Anesthesia Hx Anesthesia: Yes Hx Anesthesia Reactions: Yes (BURNING UP ARM TO HEAD BEFORE SEDATED) Hx Malignant Hyperthermia: No <Toni Lentz - Last Filed: 05/08/18 12:47> Family/Social History - Physician Review Nursing Documentation Reviewed: Yes Family/Social History: Unknown Family HX Smoking Status: Light Smoker < 10 Cigarettes Daily Hx Alcohol Use: Yes Frequency of alcohol use: Few days per week Hx Substance Use: No <Toni Lentz - Last Filed: 05/08/18 12:47> Allergies/Home Meds <Toni Lentz - Last Filed: 05/08/18 12:47> <Don Schmitt DO - Last Filed: 05/08/18 17:14> Allergies/Adverse Reactions: Allergies garlic Allergy (Severe, Verified 01/13/18 19:55) SWELLING OF FACE AND ITCHINESS onion Allergy (Severe, Verified 01/13/18 19:55) SWELLING OF FACE AND ITCHINESS pepper (genus Capsicum) [pepper] Allergy (Severe, Verified 01/13/18 19:55) SWELLING OF FACE AND ITCHINESS Home Medications: Home Meds Medication Instructions Recorded Confirmed Metoprolol Succinate XL [Toprol XL] 50 mg PO DAILY 12/20/17 05/08/18 Omeprazole 40 mg PO DAILY 12/20/17 05/08/18 Albuterol/Ipratropium [Duoneb 3 3 ml INH RQ6 PRN 03/17/18 05/08/18 mg/0.5 mg (3 ml) UD] Insulin Detemir [Levemir] 20 unit SC DAILY 03/23/18 05/08/18 MetFORMIN [glucoPHAGE] 1,000 mg PO BID 03/23/18 05/08/18 SITagliptin [Januvia] 1 tab PO DAILY 03/23/18 05/08/18 Review of Systems - Review of Systems Constitutional: Normal Eyes: Normal ENT: Normal Respiratory: Normal Cardiovascular: Normal Gastrointestinal: Abdominal Pain, Nausea. absent: Constipation, Diarrhea, Vomiting Genitourinary Male: Hematuria Musculoskeletal: Normal Skin: Normal Neurological: Normal Endocrine: Normal Hemo/Lymphatic: Normal Psychiatric: Normal <Toni Lentz - Last Filed: 05/08/18 12:47> Physical Exam Vital Signs Reviewed: Yes Vital Signs Temp Pulse Resp BP Pulse Ox 05/08/18 06:49 98.5 F 87 18 129/84 97 Temperature: Afebrile Blood Pressure: Normal Pulse: Regular Respiratory Rate: Normal Appearance: Positive for: Well-Appearing, Non-Toxic, Comfortable Pain Distress: None Mental Status: Positive for: Alert and Oriented X 3 Finger Stick Blood Glucose: 101 - Systems Exam Head: Present: Atraumatic, Normocephalic Pupils: Present: PERRL Extroacular Muscles: Present: EOMI Conjunctiva: Present: Normal Mouth: Present: Moist Mucous Membranes Neck: Present: Normal Range of Motion Respiratory/Chest: Present: Clear to Auscultation, Good Air Exchange. No: Respiratory Distress, Accessory Muscle Use Cardiovascular: Present: Regular Rate and Rhythm, Normal S1, S2. No: Murmurs Abdomen: Present: Tenderness (LLQ), Guarding. No: Distention, Peritoneal Signs, Rebound, McBurney's Point Tender, Rovsing's Sign Present Upper Extremity: Present: Normal Inspection. No: Cyanosis, Edema Lower Extremity: Present: Normal Inspection. No: Edema Neurological: Present: GCS=15, CN II-XII Intact, Speech Normal, Motor Func Grossly Intact, Normal Sensory Function, Normal Cerebellar Funct, Norm Deep Tendon Reflexes Skin: Present: Warm, Dry, Normal Color. No: Rashes Psychiatric: Present: Alert, Oriented x 3, Normal Insight, Normal Concentration <Toni Lentz - Last Filed: 05/08/18 12:47> Vital Signs Temp Pulse Resp BP Pulse Ox 05/08/18 06:49 98.5 F 87 18 129/84 97 <Don Schmitt DO - Last Filed: 05/08/18 17:14> Medical Decision Making ED Course and Treatment: 05/08/18 07:45 Impression: 68 y/o M with PMHx of diverticulitis, questionable prostate adenocarcinoma, asthma, DM2, HTN, HLD presents to ED with complaints of abdominal pain and seizure like activity after drinking last night. Differential diagnosis includes, but not limited to; Abdominal pain 2/2 diverticulitis gastritis seizure Plan: Labs EKG CT Abdomen chest xray Reassess & dispo Progress Notes: 05/08/18 09:42 Pt re-evaluated. Resting comfortably in bed, denies acute complaints - RAD Interpretation Narrative RAD Interpretations (Text): 05/08/18 10:33 CT Abdomen: Diverticulosis without CT evidence of acute diverticulitis. 5 mm left lung base nodular density. It is unclear if this is in fact a pulmonary nodule or a prominent vessel on end. This finding was not evident on CT of the abdomen and pelvis performed 01/11/18. If in fact this is a pulmonary nodule, according to the 2017 Fleischner criteria, the patient is low risk, no routine follow-up is recommended. If the patient is high risk, an optional CT at 12 months is recommended. Please note that only the lung bases are included on this study. Enlarged heterogeneous appearance of the prostate gland. Recommend correlation with PSA. Mild wall thickening of the urinary bladder; recommend correlation with urinalysis. Chest Xray: IMPRESSION: Linear atelectasis, left lung base. No focal consolidation. - EKG Interpretation EKG Interpretation (Text): 05/08/18 07:48 Normal sinus rhythm minimal voltage criteria for LVH Vent rate: 91 bpm QTc: 472 ms Interpreted by ED Physician: Yes Type: 12 lead EKG <Toni Lentz - Last Filed: 05/08/18 12:47> ED Course and Treatment: 05/08/18 07:54 68 year old male presents to the ED for evaluation of abdominal pain and questionable seizure like activity last night. In agreement with resident note which contains more details about the patient. Patient seen and evaluated with resident. Came up with plan and treatment together. - Lab Interpretations Lab Results: 05/08/18 07:25 05/08/18 07:25 Lab Results 05/08/18 07:25: Sodium 142, Potassium 3.5 L, Chloride 107, Carbon Dioxide 26, Anion Gap 13, BUN 14, Creatinine 0.9, Est GFR ( Amer) > 60, Est GFR (Non- Af Amer) > 60, Random Glucose 104, Calcium 9.5, Magnesium 1.9, Total Bilirubin 0.5, AST 26, ALT 22, Alkaline Phosphatase 70, Lactate Dehydrogenase 699, Total Creatine Kinase 149, Troponin I Pending, Total Protein 7.8, Albumin 4.2, Globulin 3.6, Albumin/Globulin Ratio 1.2 05/08/18 07:25: WBC 11.9 H, RBC 4.57, Hgb 13.1 L D, Hct 39.3 L, MCV 86.0 D, MCH 28.7, MCHC 33.3, RDW 16.0 H, Plt Count 361, MPV 9.7, Gran % 66.6, Lymph % (Auto) 24.1, Tripp % (Auto) 7.7 H, Eos % (Auto) 1.4 L, Baso % (Auto) 0.2, Gran # 7.94 H, Lymph # (Auto) 2.9, Tripp # (Auto) 0.9 H, Eos # (Auto) 0.2, Baso # (Auto) 0.02 05/08/18 06:52: POC Glucose (mg/dL) 101 - RAD Interpretation Radiology Orders: 05/08/18 07:07 CHEST PORTABLE [RAD] Stat 05/08/18 07:31 ABD & PELVIS IV CONTRAST ONLY [CT] Stat - Medication Orders Current Medication Orders: Ketorolac Tromethamine (Toradol) 30 mg IVP STAT STA Stop: 05/08/18 07:51 <Don Schmitt DO - Last Filed: 05/08/18 17:14> - PA / ANIMAL ASSISTANT / Resident Statement ULISES has reviewed & agrees with the documentation as recorded. ULISES has examined the patient and agrees with the treatment plan. <Toni Lentz - Last Filed: 05/08/18 12:47> - PA / ANIMAL ASSISTANT / Resident Statement ULISES has reviewed & agrees with the documentation as recorded. ULISES has examined the patient and agrees with the treatment plan. - Scribe Statement The provider has reviewed the documentation as recorded by the Bobbyibe Umair Baires. All medical record entries made by the Bobbyibangeline were at my direction and personally dictated by me. I have reviewed the chart and agree that the record accurately reflects my personal performance of the history, physical exam, medical decision making, and the department course for this patient. I have also personally directed, reviewed, and agree with the discharge instructions and d isposition. <Don Schmitt DO - Last Filed: 05/08/18 17:14> Disposition/Present on Arrival - Present on Arrival Any Indicators Present on Arrival: Yes History of DVT/PE: No History of Uncontrolled Diabetes: Yes Urinary Catheter: No History of Decub. Ulcer: No History Surgical Site Infection Following: None - Disposition Have Diagnosis and Disposition been Completed?: Yes Disposition Time: 10:00 <Toni Lentz - Last Filed: 05/08/18 12:47> - Disposition Disposition Time: 09:05 <Don Schmitt DO - Last Filed: 05/08/18 17:14> - Disposition Diagnosis: Abdominal pain Disposition: HOME/ ROUTINE Condition: GOOD Discharge Instructions (ExitCare): Acute Abdomen (Belly Pain) Additional Instructions: DON DE SOUZA, thank you for letting us take care of you today. The emergency medical care you received today was directed at your acute symptoms. If you were prescribed any medication, please fill it and take as directed. It may take several days for your symptoms to resolve. Return to the Emergency Department if your symptoms worsen, do not improve, or if you have any other problems. Please contact your doctor or call one of the physicians/clinics you have been referred to that are listed on the Patient Visit Information form that is included in your discharge packet. Bring any paperwork you were given at discharge with you along with any medications you are taking to your follow up visit. Our treatment cannot replace ongoing medical care by a primary care jose e zhang outside of the emergency department. Thank you for allowing the [facility] team to be part of your care today. Follow up with your primary care doctor in 2-3 days for re-evaluation and further management. Referrals: Margie Church MD [Primary Care Provider] - Follow up with primary Forms: [employer] ([place])
[2018-05-08 07:36] LABS: BASO # 0.02 K/mm3 (0.0-2.0); BASO % 0.2 % (0.0-3.0); EOS # 0.2 (0.0-0.7); EOS % 1.4 % (1.5-5.0); GRAN # 7.94 (1.4-6.5); GRAN % 66.6 % (50.0-68.0); HEMOGLOBIN 13.1 g/dL (14.0-18.0); LYMPH # 2.9 (1.2-3.4); LYMPH % 24.1 % (22.0-35.0); MEAN CORPUSCULAR HEMOGLOBIN 28.7 pg (25.0-35.0); MEAN CORPUSCULAR HGB CONC 33.3 g/dl (31.0-37.0); MEAN PLATELET VOLUME 9.7 fl (7.0-11.0); MONO # 0.9 (0.1-0.6); MONO % 7.7 % (1.0-6.0); RBC 4.57 10^6/uL (3.5-6.1); WHITE BLOOD COUNT 11.9 10^3/uL (4.5-11.0)
[2018-05-08 07:48] LABS: ALB/GLOB RATIO 1.2 (1.1-1.8); ALBUMIN 4.2 g/dL (3.0-4.8); BLOOD UREA NITROGEN 14 mg/dL (7-21); CALCIUM 9.5 mg/dL (8.4-10.5); GFR NON-AFRICAN AMERICAN > 60
[2018-05-08 07:51] LABS: ALT/SGPT 22 U/L (7-56); AST/SGOT 26 U/L (17-59)
[2018-05-08 07:58] LABS: TROPONIN I 0.02 ng/mL
[2018-05-08] MEDS ORDERED: Iohexol 350 MG/100 ML VIAL ONE (08:07)
--- NOTE | 2018-05-08 08:53 | RAD ---
HISTORY: r/o infiltrate COMPARISON: Chest x-ray performed 01/19/18 TECHNIQUE: Chest, one view. FINDINGS: Examination limited by habitus. LUNGS: Linear atelectasis, left lung base. No focal consolidation. Please note that chest x-ray has limited sensitivity for the detection of pulmonary masses. PLEURA: No significant pleural effusion identified. No definite pneumothorax . CARDIOVASCULAR: Heart size appears top normal. No significant atherosclerotic calcification present. OSSEOUS STRUCTURES: No acute osseous abnormality identified. VISUALIZED UPPER ABDOMEN: Unremarkable. OTHER FINDINGS: None. IMPRESSION: Linear atelectasis, left lung base. No focal consolidation.
--- NOTE | 2018-05-08 09:06 | CT ---
Date of service: 05/08/2018 PROCEDURE: CT Abdomen and Pelvis with contrast HISTORY: LLQ pain - h/o diverticulitis COMPARISON: CT abdomen and pelvis with IV contrast performed 01/11/18 the the the a TECHNIQUE: Contrast dose: 100 mL Omnipaque 350 IV Radiation dose: Total exam DLP = 384.36 mGy-cm. This CT exam was performed using one or more of the following dose reduction techniques: Automated exposure control, adjustment of the mA and/or kV according to patient size, and/or use of iterative reconstruction technique. FINDINGS: LOWER THORAX: 5 mm left lung base nodular density. It is unclear if this is in fact a pulmonary nodule or a prominent vessel on end. This finding was not evident on CT of the abdomen and pelvis performed 01/11/18. No visible pleural effusion or pneumothorax. Partially imaged cardiomegaly. Dense coronary artery calcification. Small hiatal hernia/distal esophageal wall thickening. LIVER: Too small to characterize 9 mm left hepatic lobe and 4 mm right hepatic lobe hepatic hypodensities; statistically likely cysts or hemangiomas. GALLBLADDER AND BILE DUCTS: Unremarkable. PANCREAS: Unremarkable. SPLEEN: Unremarkable. ADRENALS: Unremarkable. KIDNEYS AND URETERS: The kidneys enhance symmetrically. No hydronephrosis or obstructing calculus identified. VASCULATURE: No aortic aneurysm. Atherosclerotic calcification of the aorta present. BOWEL: Stomach is nondistended. Lack of oral contrast limits evaluation for bowel pathology. Bowel loops appear within normal limits of caliber without evidence of obstruction. Diverticulosis without CT evidence of acute diverticulitis. APPENDIX: The appendix appears within normal limits of caliber. No secondary signs of acute appendicitis. PERITONEUM: No significant free fluid. No definite free air. LYMPH NODES: No bulky adenopathy identified. BLADDER: Mild wall thickening of the urinary bladder; recommend correlation with urinalysis. REPRODUCTIVE: Enlarged heterogeneous appearance of the prostate gland. Recommend correlation with PSA. BONES: Degenerative changes of the spine. Extruded disc herniation re-identified at L4-L5. Vacuum disc phenomenon at L4-L5 and L5-S1 with intervertebral disc space narrowing. OTHER FINDINGS: None. IMPRESSION: Diverticulosis without CT evidence of acute diverticulitis. 5 mm left lung base nodular density. It is unclear if this is in fact a pulmonary nodule or a prominent vessel on end. This finding was not evident on CT of the abdomen and pelvis performed 01/11/18. If in fact this is a pulmonary nodule, according to the 2017 Fleischner criteria, the patient is low risk, no routine follow-up is recommended. If the patient is high risk, an optional CT at 12 months is recommended. Please note that only the lung bases are included on this study. Enlarged heterogeneous appearance of the prostate gland. Recommend correlation with PSA. Mild wall thickening of the urinary bladder; recommend correlation with urinalysis. Additional findings as above.
[2018-05-08 09:11] VITALS: BP 121/54; PULSE 90
--- NOTE | 2018-05-08 15:20 | CARD ---
APPROVED REPORT Date of service: 05/08/2018 EKG Measurement Heart [id number] <Conclusion> Normal sinus rhythm Minimal voltage criteria for LVH, may be normal variant
== END 2018-05-08 09:57 | disposition home or self-care (01) ==
LOC: ED 06:41
DX: R10.9 Unspecified abdominal pain (principal); I10 Essential (primary) hypertension; E11.9 Type 2 diabetes mellitus without complications; E78.5 Hyperlipidemia, unspecified; J44.9 Chronic obstructive pulmonary disease, unspecified; Z99.81 Dependence on supplemental oxygen; Z95.5 Presence of coronary angioplasty implant and graft; F17.210 Nicotine dependence, cigarettes, uncomplicated
CPT/HCPCS: 71045; 74177; 80053; 82550; 82948; 83615; 83690; 83735; 84484; 85025; 93005; 96374; 99284; G0480; J1885; Q9967